=== PATIENT | female | born 1955 | race Caucasian/White ===

== ENCOUNTER 2017-05-06 10:35 | Day surgery (SDC) | payer MEDICAID ==
[2017-05-06 11:24] LABS: HEMATOCRIT 35.1 % (36.0-47.0); HEMOGLOBIN 11.6 g/dL (12.0-15.5); HGB HCT DIFFERENCE -0.3; MEAN CORPUSCULAR HEMOGLOBIN 28.3 pg (27.0-33.4); MEAN CORPUSCULAR HGB CONC 33.1 g/dL (32.0-36.0); MEAN CORPUSCULAR VOLUME 86 fl (80-97); RED BLOOD COUNT 4.11 10^6/uL (3.72-5.28); RED CELL DISTRIBUTION WIDTH 13.1 % (11.5-14.0); WHITE BLOOD COUNT 5.6 10^3/uL (4.0-10.5)
[2017-05-06 11:46] LABS: BLOOD UREA NITROGEN 14 mg/dL (7-20)
[2017-05-06] MEDS ORDERED: FENTANYL CITRATE INJ/PF 100 MCG/2 ML AMPUL ONE (14:13)
[2017-05-06] MEDS ORDERED: MIDAZOLAM 2 MG/2 ML INJ ONE (14:13)
--- NOTE | 2017-05-06 15:09 | RADIOLOGY REPORT (SQ) ---
EXAM DESCRIPTION: CT NEEDLE PLACEMENT; CT BIOPSY ABD/RETROPERIT MASS COMPLETED DATE/TIME: 05/06/2017 2:55 pm REASON FOR STUDY: RETROPERITONEAL BIOPSY; ABN FINDINGS ON IMAGING OF DIGESTIVE TRACT R93.3 ABNORMAL FINDINGS ON DX IMAGING OF PRT DIGESTIVE TRACT COMPARISON: None. FLUORO TIME: 1 minutes 8 second LIMITATIONS: None. PROCEDURE: After obtaining informed consent, the patient was brought to the CT suite and was placed supine on the CT gurney. The patient was prepped and draped in the usual sterile fashion . Axial mario ges were obtained for targeting of thelesser sac lesion. An appropriate access site was selected. IV sedation was administered and physician direction by the registered nurse using 1 milligrams of Verse d and 75 micrograms of fentanyl. Physiologic monitoring was provided before, during, and after sedati on. The total sedation time was 30 minutes. Documentation face to face time, the performing interventional radiologist, spent monitoring the jase ent: 30minutes. The skin, soft tissues and liver capsule were anesthetized with 1% lidocaine. Using CT fluoroscopic and dedicated CT imaging, a 19 gauge Temno coaxial outer guiding trocar was advanced through the skin , liver, and into the lesion. Trocar position was confirmed with CT images. Inner stylet was remove d patient was noted to have fluid. Approximately 20 cc of serosanguineous fluid was aspirated and se nt to the lab for analysis. Multiple core biopsy samples were then obtained of the lesion using a 20 gauge Temno coaxial core biopsy needle. The biopsy samples were placed in formalin and sent to the lab for analysis. The outer trocar was then pulled back and Gelfoam pledgets were inserted across th e liver parenchyma. Postprocedural CT images demonstrate no significant complications. A sterile dr essing was placed over the wound. The patient left the CT suite in stable condition. IMPRESSION: CT-guided at the lesser sac lesion biopsy. Pathology pending. COMMENT: Patient medication list reviewed:Yes- Quality ID# [id number]:Eligible professional attests to docu menting in the medical record they obtained, updated, or reviewed the patient's current medications. Quality ID #76: The patient was prepped and draped using maximum sterile barrier technique including cap, mask, sterile gown, sterile gloves, a large sterile sheet, hand hygiene, and 2% Chlorhexidine fo r cutaneous antisepsis. When ultrasound is used, sterile ultrasound techniques are followed requiring sterile gel and sterile probes. Quality ID 145: Final reports for procedures using fluoroscopy that document radiation exposure moraima richie, or exposure time and number of fluorographic images (if radiation exposure indices are not avail able) TECHNICAL DOCUMENTATION: JOB ID: [id number] [employer]- All Rights Reserved
[2017-05-06 17:05] VITALS: BP 151/87
== END 2017-05-06 17:05 | disposition home or self-care (01) ==
LOC: RAD 10:35
PROVIDERS: ATTEND Internal Medicine Gastroenterology
PROC: 0WBH3ZX Excision of Retroperitoneum, Percutaneous Approach, Diagnostic (ICD-10-PCS; principal; 2017-05-06)
DX: R93.3 Abnormal findings on diagnostic imaging of other parts of digestive tract (principal); R13.12 Dysphagia, oropharyngeal phase; C15.9 Malignant neoplasm of esophagus, unspecified; K58.0 Irritable bowel syndrome with diarrhea; R10.13 Epigastric pain; E78.00 Pure hypercholesterolemia, unspecified; E11.9 Type 2 diabetes mellitus without complications; I10 Essential (primary) hypertension; K76.0 Fatty (change of) liver, not elsewhere classified; Z88.2 Allergy status to sulfonamides; Z79.899 Other long term (current) drug therapy; Z79.82 Long term (current) use of aspirin
CPT/HCPCS: 36415; 87205; 87070; 84520; 82565; 85027; 85610; 85730; 87075; 88305 ×2; 77012; 49180; J2250; J3010

== ENCOUNTER → 2017-08-16 | Outpatient (CLI) | payer MEDICAID ==
--- NOTE | 2017-08-17 18:00 | RADIOLOGY REPORT (SQ) ---
EXAM DESCRIPTION: PET CT SKULL/THIGH COMPLETED DATE/TIME: 08/16/2017 10:37 pm REASON FOR STUDY: MALIGNANT NEOPLASM OF LOWER THIRD OF ESOPHAGUS C15.5 MALIGNANT NEOPLASM OF LOWER THIRD OF ESOPHAGUS COMPARISON: PET-CT 07/23/2014 CT abdomen pelvis 01/25/2015 CT-guided biopsy images 05/06/2017 RADIONUCLIDE AND DOSE: 9.6 mCi F18 FDG The route of agent administration: Intravenous FASTING BLOOD SUGAR: 134 mg/dl CONTRAST TYPE AND DOSE: No CT contrast given. TECHNIQUE: Blood glucose level was verified. Above dose of FDG was injected intravenously. 2-D seg mented attenuation correction images were obtained from the base of the skull to the midthighs. Nonc ontrast CT images were obtained for attenuation correction and fusion with emission images. CT image s were performed without oral or intravenous contrast and are not sensitive for parenchymal lesions. A series of overlapping emission PET images were obtained. Images reviewed and manipulated at [facility] work station by the radiologist. Images stored on PACS. LIMITATIONS: None. FINDINGS: HEAD AND NECK: No areas of abnormal metabolic activity in the soft tissues of the head and neck. CHEST: Multiple subcentimeter lung nodules are present worrisome for metastatic lesions ABDOMEN AND PELVIS: There are multiple cystic metastatic lesions throughout the liver. Several of th kinjal have a peripheral rim of increased activity. Index lesions are as follows: 7.8 x 7 cm left lobe liver segment 2, SUV of 8.2 6 x 4.4 cm left lobe liver segment 4B, SUV of 7.2 A single enlarged left para-aortic lymph node is present just superior to the left renal vein, 1.6 x 1.4 cm in size with SUV 3.6. PROXIMAL LOWER EXTREMITIES: No areas of abnormal metabolic activity in the soft tissues of the lower extremities. BONES: No abnormal metabolic activity in the visualized skeleton. ADDITIONAL CT FINDINGS: Degenerative changes cervical spine. Non metabolic 11 mm left upper inner qu adrant breast nodule axial image 90 of doubtful significance. Post hysterectomy. Anastomotic bowel geena in the right lower quadrant OTHER: Liver background SUV 2.4. Blood pool SUV 1.8. IMPRESSION: Liver metastatic lesions Hypermetabolic left para-aortic lymph node Multiple tiny subcentimeter lung nodules worrisome for metastatic disease TECHNICAL DOCUMENTATION: JOB ID: [id number]- All Rights Reserved
== END ==
LOC: RAD 20:48
PROVIDERS: ATTEND Internal Medicine
DX: C15.5 Malignant neoplasm of lower third of esophagus (principal)
CPT/HCPCS: 78815; A9552

== ENCOUNTER 2017-08-24 09:22 | Day surgery (SDC) | payer MEDICAID ==
[2017-08-24 09:07] LABS: HEMATOCRIT 34.5 % (36.0-47.0); HEMOGLOBIN 11.7 g/dL (12.0-15.5); HGB HCT DIFFERENCE 0.6; MEAN CORPUSCULAR HEMOGLOBIN 29.1 pg (27.0-33.4); MEAN CORPUSCULAR HGB CONC 33.8 g/dL (32.0-36.0); MEAN CORPUSCULAR VOLUME 86 fl (80-97); RED BLOOD COUNT 4.01 10^6/uL (3.72-5.28); RED CELL DISTRIBUTION WIDTH 16.2 % (11.5-14.0); WHITE BLOOD COUNT 15.2 10^3/uL (4.0-10.5)
[~2017-08-24 09:22] MED LIST: CEFAZOLIN 1 GM/D5W RTU 1 GM/50 ML RTUPB IV PRN; DEXTROSE 5%-1/2 NORMAL SALINE 1,000 ML IV PRN
[2017-08-24 09:35] LABS: ANION GAP 8 (5-19); BLOOD UREA NITROGEN 14 mg/dL (7-20); CALCIUM 9.7 mg/dL (8.4-10.2); CARBON DIOXIDE 31 mmol/L (22-30); CHLORIDE 87 mmol/L (98-107); CREATININE RESULT 0.74 mg/dL (0.52-1.25); GLUCOSE 151 mg/dL (75-110); POTASSIUM 4.5 mmol/L (3.6-5.0); SODIUM 126.4 mmol/L (137-145)
--- NOTE | 2017-08-24 10:46 | RADIOLOGY REPORT (SQ) ---
EXAM DESCRIPTION: CHEST PA/LATERAL COMPLETED DATE/TIME: 08/24/2017 9:09 am REASON FOR STUDY: ENCOUNTER FOR OTHER PREPROCEDURAL EXAMINATION COMPARISON: 01/25/2015 EXAM PARAMETERS: NUMBER OF VIEWS: two views TECHNIQUE: Digital Frontal and Lateral radiographic views of the chest acquired. RADIATION DOSE: NA LIMITATIONS: none FINDINGS: LUNGS AND PLEURA: Linear scarring or atelectasis in the right lower lobe. MEDIASTINUM AND HILAR STRUCTURES: No masses or contour abnormalities. HEART AND VASCULAR STRUCTURES: Heart normal size. No evidence for failure. BONES: No acute findings. HARDWARE: None in the chest. OTHER: No other significant finding. IMPRESSION: Atelectasis. TECHNICAL DOCUMENTATION: JOB ID: [id number] [employer]- All Rights Reserved
[2017-08-24] MEDS ORDERED: MIDAZOLAM 2 MG/2 ML INJ ONE (11:17)
[2017-08-24] MEDS ORDERED: FENTANYL CITRATE INJ/PF 100 MCG/2 ML AMPUL ONE (11:17)
[2017-08-24] MEDS ORDERED: BACITRACIN INJ 50,000 UNIT VIAL ONE (11:18)
[2017-08-24] MEDS ORDERED: LIDOCAINE 0.5% INJ-PF (5 MG/ML) 50 ML SDV ONE (11:18)
--- NOTE | 2017-08-24 12:37 | PDOC DISCHARGE SUMMARY ---
Discharge Summary (SDC) - Discharge Final Diagnosis: #1 recurrent esophageal cancer. 2. Diabetes mellitus type 2. 3. Hypertension Date of Surgery: 08/24/17 Discharge Date: 08/24/17 Condition: Poor Treatment or Instructions: Discharge home [after recovery per ASU criteria]. Diet , ADA meds per med rec,as tolerated, when fully awake advance as tolerated. Activities within moderation encouraged. Follow up in my office by appointment in about [1 week]. Call for appointment. Leave wounds [covered], [keep clean and dry, until office visit in 1 week]. Meds per med rec. May shower [in 48 hrs], [try to keep operated area as dry as possible]. Referrals: LOCALMD,NO [Primary Care Provider] - Discharge Diet: As Tolerated, Other (Comments) - Try to keep well hydrated Respiratory Treatments at Home: Deep Breathing/Coughing Discharge Activity: Activity As Tolerated Report the Following to Your Physician Immediately: Shortness of Breath, Unusual Bleeding
--- NOTE | 2017-08-24 12:41 | Operative Report ---
Operative Report DATE OF SURGERY: 08/24/17 PREOPERATIVE DIAGNOSIS: #1 recurrent esophageal cancer. 2. Diabetes mellitus type 2. 3. Hypertension POSTOPERATIVE DIAGNOSIS: #1 recurrent esophageal cancer. Post Port-A-Cath insertion. 2. Diabetes mellitus type 2. 3. Hypertension OPERATION: 1. Ultrasound evaluation and real-time access in the right internal jugular vein. 2. Insertion of single-lumen Port-A-Cath via real-time access in the right internal jugular vein. 3. Angiogram and interpretation. SURGEON: EARL HILLMAN UNIT CONTROLLER: None ANESTHESIA: Moderate Sedation TISSUE REMOVED OR ALTERED: Not applicable. COMPLICATIONS: None ESTIMATED BLOOD LOSS: 5 mL. INTRAOPERATIVE FINDINGS: Of a satisfactory right internal jugular vein, somewhat soft suggestive of reduced hydration. About 1.2 cm in diameter. Good position of the catheter with the tip just down in the right atrium. There was a tendency to go over to the innominate which is corrected by gentle manipulation. Contrast flow through the superior vena cava, right atrium noted. A spot film of the right apex looked normal with good position of the catheter and the normal lung appearance. PROCEDURE: After obtaining informed consent, the patient was taken to the [operating room] and positioned supine. The [right] neck and chest were prepared with chlorhexidine and draped out with sterile linen. After the " universal timeout ", in which it was verified that the patient continued to receive antibiotic, the procedure commenced. A steriley sheathed ultrasound probe was used to evaluate the [right] internal jugular vein. Local anesthesia was infiltrated adjacent to the probe. Access into the [right] internal jugular vein was obtained using a micropuncture needle, followed by micropuncture wire and then a micropuncture catheter. This was followed by introduction of a 0.035 guidewire the tip of which was placed down into the inferior vena cava . The port sites was marked , locally anesthetized and incision made. Dissection now proceeded to the deep subcutaneous subcutaneous tissues so that a pocket for the port was made. Meticulous hemostasis was secured and the catheter was tunneled between the 2 incisions. Proximally, the catheter was now positioned using a peel-away sheath. Distally the catheter was tailored to an appropriate length and then mated to the port using the contained fixating device. The port was now placed in the pocket and the catheter optimally positioned. The port was accessed with a Croft needle and an angiogram done under digital subtraction. The findings as dictated. With adequate and satisfactory positioning, both lumens of the chamber were irrigated with heparinized solution. The wounds were now closed using interrupted 3-0 PDS to the subcutaneous tissues and a continuous subcuticular suture of 4-0 Monocryl to the skin. These are reinforced with Steri-Strips over benzoin and then dressings applied. Time: 1 minute. Dose: 3.23 m Gy Contrast: 5 mls. Isovue 300. Copies of the dictated operative report for Dr. Earl Benton MD.
[2017-08-24 13:25] VITALS: BP 125/93
--- NOTE | 2017-08-24 14:34 | EKG REPORT ---
SEVERITY:- OTHERWISE NORMAL ECG - SINUS TACHYCARDIA : Confirmed by: Jennyfer Walsh MD 24-Aug-2017 14:33:45
--- NOTE | 2017-08-24 15:41 | RADIOLOGY REPORT (SQ) ---
EXAM DESCRIPTION: PORTACATH INSERTION COMPLETED DATE/TIME: 08/24/2017 3:01 pm REASON FOR STUDY: C15.5 C15.5 MALIGNANT NEOPLASM OF LOWER THIRD OF ESOPHAGUS Z01.818 ENCOUNTER FOR OTHER PREPROCEDURAL EXAMINATION COMPARISON: None. FLUOROSCOPY TIME: 1.0 minutes 6 images saved to PACS. TECHNIQUE: Intra-operative images acquired during surgical procedure to evaluate progress. NUMBER OF IMAGES: 6 dx LIMITATIONS: None. FINDINGS: Right-sided port tip overlies SVC. IMPRESSION: IMAGE(S) OBTAINED DURING PROCEDURE. COMMENT: Quality ID 145: Final reports for procedures using fluoroscopy that document radiation exp osure indices, or exposure time and number of fluorographic images (if radiation exposure indices are not available) Please consult full operative report of the attending physician for description of the procedure. TECHNICAL DOCUMENTATION: JOB ID: [id number] [employer]- All Rights Reserved
== END 2017-08-24 13:18 | disposition home or self-care (01) ==
LOC: SC 09:22
PROVIDERS: ATTEND Surgery
PROC: 05HM33Z Insertion of Infusion Device into Right Internal Jugular Vein, Percutaneous Approach (ICD-10-PCS; principal; 2017-08-24)
DX: C15.5 Malignant neoplasm of lower third of esophagus (principal); E11.9 Type 2 diabetes mellitus without complications; I10 Essential (primary) hypertension; E78.00 Pure hypercholesterolemia, unspecified; M19.90 Unspecified osteoarthritis, unspecified site; Z79.899 Other long term (current) drug therapy; Z79.84 Long term (current) use of oral hypoglycemic drugs
CPT/HCPCS: 93005; 36415; 85027; 80048; 36561; 76937; 77001; 71020; 93010; C1788; C1752; Q9967; J2250; J3490 ×2; J0690; J3010; J1644

== ENCOUNTER 2017-08-31 11:25 | Inpatient (IN) | payer MEDICAID ==
--- NOTE | 2017-08-31 12:04 | ER Document Report ---
ED General - General Chief Complaint: General Weakness Stated Complaint: WEAKNESS Time Seen by Provider: 08/31/17 11:50 Information source: Patient, Relative Notes: This is a 61-year-old female with history of metastatic esophageal cancer. Has been having increasing weakness while at home. Daughter takes care of her. States that she is dropping things and more unresponsive than usual. Followed by oncology. Recent port was placed in the right subclavian proximally 1 week ago. Denies fevers, chills or sweats. Has lost appetite. She has not been eating or drinking well either. By report from family patient is a DNR. Patient is not on hospice at this time. Scheduled for chemotherapy soon. TRAVEL OUTSIDE OF THE [place] IN LAST 30 DAYS: No - Related Data Allergies/Adverse Reactions: Sulfa (Sulfonamide Antibiotics) Allergy (Intermediate, Verified 08/31/17 12:08) Past Medical History - General Information source: Patient, Relative - Social History Smoking Status: Smoker,Current Status Unk Family History: Reviewed & Not Pertinent Patient has suicidal ideation: No Patient has homicidal ideation: No - Past Medical History Cardiac Medical History: Reports: Hx Coronary Artery Disease, Hx Hypercholesterolemia, Hx Hypertension Denies: Hx Heart Attack Pulmonary Medical History: Denies: Hx Asthma, Hx Bronchitis, Hx COPD, Hx Pneumonia Neurological Medical History: Denies: Hx Cerebrovascular Accident, Hx Seizures Endocrine Medical History: Reports: Hx Diabetes Mellitus Type 2 Renal/ Medical History: Denies: Hx Peritoneal Dialysis GI Medical History: Reports: Hx Gastroesophageal Reflux Disease Musculoskeltal Medical History: Reports Hx Arthritis Psychiatric Medical History: Denies: Hx Depression Past Surgical History: Reports: Hx Gynecologic Surgery - Immunizations Hx Diphtheria, Pertussis, Tetanus Vaccination: Yes Review of Systems - Review of Systems Constitutional: No symptoms reported, Malaise, Weakness, Weight loss EENT: No symptoms reported Cardiovascular: No symptoms reported, Heart racing Respiratory: No symptoms reported, Short of breath Gastrointestinal: No symptoms reported, Abdominal pain Genitourinary: No symptoms reported, Other - Decreased urinary output Female Genitourinary: No symptoms reported Musculoskeletal: No symptoms reported, Other - Aches and pains in bilateral lower extremities Skin: No symptoms reported Hematologic/Lymphatic: No symptoms reported, See HPI Neurological/Psychological: No symptoms reported, Confusion, Weakness Physical Exam - Vital signs Vitals: Pulse Resp BP Pulse Ox 134 H 21 H 94/66 L 93 08/31/17 11:27 08/31/17 11:27 08/31/17 11:27 08/31/17 11:27 Interpretation: Normal, Tachycardic - General General appearance: Appears well, Alert, Lethargic - HEENT Head: Normocephalic, Atraumatic Eyes: Normal Conjunctiva: Icteric Pupils: PERRL Mucous membranes: Dry - Respiratory Respiratory status: No respiratory distress Chest status: Nontender Breath sounds: Normal Chest palpation: Normal - Cardiovascular Rhythm: Regular, Tachycardia Heart sounds: Normal auscultation Murmur: No - Abdominal Inspection: Normal Distension: No distension Bowel sounds: Normal Tenderness: Nontender Organomegaly: No organomegaly - Back Back: Normal, Nontender - Extremities General upper extremity: Normal inspection, Nontender, Normal color, Normal ROM , Normal temperature General lower extremity: Normal inspection, Nontender, Normal color, Normal ROM , Normal temperature, Normal weight bearing. No: Lucia's sign - Neurological Neuro grossly intact: Yes Cognition: Normal Orientation: AAOx4 Jovon Coma Scale Eye Opening: Spontaneous Jovon Coma Scale Verbal: Oriented Jovon Coma Scale Motor: Obeys Commands [place] Coma Scale Total: 15 Speech: Normal Motor strength normal: LUE, RUE, LLE, RLE Sensory: Normal - Psychological Associated symptoms: Normal affect, Normal mood - Skin Skin Temperature: Warm Skin Moisture: Dry Skin Color: Normal Course - Re-evaluation Re-evalutation: 08/31/17 12:26 This is a 61-year-old female patient with malignancy. Is tachycardic. Could be dehydrated versus sepsis. We will do a septic protocol at this time with blood cultures and lactic acid. We will start some IV fluids. We will also get basic blood work, chest x-ray as well as head CT. Will consult with oncologist regarding her continued care. Family members are at bedside are aware of plan as well. 08/31/17 14:59 Consulted with oncologist, Dr. Zuleta. Recommends getting culture off of the port, culture urine and starting on broad-spectrum antibiotics as patient has an elevated white count and not feeling well which could represent an infection. Patient also has hyponatremia. Also has mild hyperkalemia. Also has dehydration and tachycardia. Will consult with hospitalist at this time for admit. 08/31/17 15:04 Consulted hospitalist. Will admit at this time - Vital Signs Vital signs: Temp Pulse Resp BP Pulse Ox 98.1 F 134 H 15 103/74 90 L 08/31/17 12:08 08/31/17 11:27 08/31/17 14:01 08/31/17 14:01 08/31/17 14:01 - Laboratory Result Diagrams: 08/31/17 11:55 08/31/17 11:55 Laboratory results interpreted by me: 08/31/17 08/31/17 08/31/17 11:55 11:55 11:55 WBC 19.2 H RDW 17.4 H Seg Neuts % (Manual) 96 H Lymphocytes % (Manual) 2 L Monocytes % (Manual) 2 L Abs Neuts (Manual) 18.4 H Abs Lymphs (Manual) 0.4 L PT 46.7 H VBG pH Sodium 126.8 L Potassium 5.1 H Chloride 86 L BUN 40 H Est GFR (Non-Af Amer) 50 L Glucose 200 H POC Glucose Lactic Acid Calcium 10.5 H Total Bilirubin 7.1 H Direct Bilirubin 5.5 H AST 807 H ALT 376 H Alkaline Phosphatase 479 H Albumin 2.8 L 08/31/17 08/31/17 08/31/17 11:55 11:55 12:28 WBC RDW Seg Neuts % (Manual) Lymphocytes % (Manual) Monocytes % (Manual) Abs Neuts (Manual) Abs Lymphs (Manual) PT VBG pH 7.48 H Sodium Potassium Chloride BUN Est GFR (Non-Af Amer) Glucose POC Glucose 177 H Lactic Acid 5.0 H Calcium Total Bilirubin Direct Bilirubin AST ALT Alkaline Phosphatase Albumin - EKG Interpretation by Me EKG shows normal: [place], Intervals, QRS Complexes, ST-T Waves Rate: Tachycardia Critical Care Note - Critical Care Note Total time excluding time spent on procedures (mins): 60 Comments: Metabolic disorders, tachycardia, dehydration Discharge - Discharge Clinical Impression: 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
[2017-08-31] MEDS ORDERED: NORMAL SALINE 1000 ML 1,000 ML IV ONE ×2 (12:06→14:11)
[2017-08-31 12:14] LABS: HEMATOCRIT 43.2 % (36.0-47.0); HEMOGLOBIN 13.9 g/dL (12.0-15.5); HGB HCT DIFFERENCE -1.5; MEAN CORPUSCULAR HEMOGLOBIN 28.4 pg (27.0-33.4); MEAN CORPUSCULAR HGB CONC 32.3 g/dL (32.0-36.0); MEAN CORPUSCULAR VOLUME 88 fl (80-97); RED BLOOD COUNT 4.91 10^6/uL (3.72-5.28); RED CELL DISTRIBUTION WIDTH 17.4 % (11.5-14.0); WHITE BLOOD COUNT 19.2 10^3/uL (4.0-10.5)
[2017-08-31 12:15] LABS: VENOUS BLOOD BASE EXCESS 4.5 mmol/L; VENOUS BLOOD HCO3 28.3 mmol/L (20-32); VENOUS BLOOD PCO2 38.9 mmHg (35-63); VENOUS BLOOD PH 7.48 (7.30-7.42)
[2017-08-31 12:20] LABS: PROTHROMBIN TIME 46.7 SEC (11.4-15.4)
[2017-08-31 12:30] LABS: ALANINE AMINOTRANSFERASE 376 U/L (9-52); ALBUMIN 2.8 g/dL (3.5-5.0); ALKALINE PHOSPHATASE 479 U/L (38-126); ANION GAP 15 (5-19); BILIRUBIN,DIRECT 5.5 mg/dL (0.0-0.4); BILIRUBIN,TOTAL 7.1 mg/dL (0.2-1.3); BLOOD UREA NITROGEN 40 mg/dL (7-20); CALCIUM 10.5 mg/dL (8.4-10.2); CARBON DIOXIDE 26 mmol/L (22-30); CHLORIDE 86 mmol/L (98-107); CREATININE RESULT 1.11 mg/dL (0.52-1.25); GLUCOSE 200 mg/dL (75-110); LIPASE 83.2 U/L (23-300); POTASSIUM 5.1 mmol/L (3.6-5.0); SODIUM 126.8 mmol/L (137-145); TOTAL PROTEIN 6.5 g/dL (6.3-8.2)
[2017-08-31 12:38] LABS: ASPARTATE AMINO TRANSFERASE 807 U/L (14-36)
[2017-08-31 12:42] LABS: BASOPHILS % (MANUAL) 0 % (0-2); EOSINOPHILS % (MANUAL) 0 % (0-6); LYMPHOCYTES % (MANUAL) 2 % (13-45); TOTAL CELLS COUNTED 100
[2017-08-31 12:44] LABS: ANISOCYTOSIS 1+; TOXIC GRANULATION 2+
--- NOTE | 2017-08-31 12:54 | RADIOLOGY REPORT (SQ) ---
EXAM DESCRIPTION: CT HEAD WITHOUT COMPLETED DATE/TIME: 08/31/2017 12:22 pm REASON FOR STUDY: Altered mental status, malignancy with mets COMPARISON: 05/11/2016 TECHNIQUE: Axial images acquired through the brain without intravenous contrast. Images reviewed wi th bone, brain and subdural windows. Images stored on PACS. All CT scanners at this facility use dose modulation, iterative reconstruction, and/or weight based d osing when appropriate to reduce radiation dose to as low as reasonably achievable (ALARA). [facility]: Dose Right [facility]: CareDose [facility]: Dose Right [facility]: Teradose 4D [facility]: Garena RADIATION DOSE: Up-to-date CT equipment and radiation dose reduction techniques were employed. CTDIv ol: 64.6 mGy. DLP: 1163 mGy-cm. mGy. LIMITATIONS: None. FINDINGS: VENTRICLES: Normal size and contour. CEREBRUM: No masses. No hemorrhage. No midline shift. No evidence for acute infarction. Normal gra y/white matter differentiation. No areas of low density in the white matter. CEREBELLUM: No masses. No hemorrhage. No alteration of density. No evidence for acute infarction. EXTRAAXIAL SPACES: No fluid collections. No masses. ORBITS AND GLOBE: No intra- or extraconal masses. Normal contour of globe without masses. CALVARIUM: No fracture. PARANASAL SINUSES: No fluid or mucosal thickening. SOFT TISSUES: No mass or hematoma. OTHER: No other significant finding. IMPRESSION: NORMAL BRAIN CT WITHOUT CONTRAST. NO EVIDENCE OF METASTASES. NO EVIDENCE OF STROKE. . COMMENT: Quality ID # [id number]: Final reports with documentation of one or more dose reduction techniques (e.g., Automated exposure control, adjustment of the mA and/or kV according to patient size, use of iterative reconstruction technique) TECHNICAL DOCUMENTATION: JOB ID: [id number]- All Rights Reserved
--- NOTE | 2017-08-31 13:04 | RADIOLOGY REPORT (SQ) ---
EXAM DESCRIPTION: CHEST SINGLE VIEW COMPLETED DATE/TIME: 08/31/2017 12:27 pm REASON FOR STUDY: sob COMPARISON: None. EXAM PARAMETERS: NUMBER OF VIEWS: One view. TECHNIQUE: Single frontal radiographic view of the chest acquired. RADIATION DOSE: NA LIMITATIONS: None. FINDINGS: LUNGS AND PLEURA: There is subsegmental atelectasis the right base. MEDIASTINUM AND HILAR STRUCTURES: No masses. Contour normal. HEART AND VASCULAR STRUCTURES: Heart normal in size. Normal vasculature. BONES: No acute findings. HARDWARE: An injection port is present on the right. The tip of the catheter is in the superior cava . OTHER: No other significant finding. IMPRESSION: Subsegmental atelectasis with no acute cardiopulmonary disease. TECHNICAL DOCUMENTATION: JOB ID: [id number]
--- NOTE | 2017-08-31 13:23 | EKG REPORT ---
SEVERITY:- OTHERWISE NORMAL ECG - SINUS TACHYCARDIA : Confirmed by: Jace Clark MD 31-Aug-2017 13:23:14
[2017-08-31] MEDS ORDERED: PIPERACILLIN/TAZOBACTAM 3.375 GM VIAL IV ONE (14:49)
[2017-08-31] MEDS ORDERED: ONDANSETRON HCL INJ/PF 4 MG/2 ML SDV IV PRN (15:35)
[2017-08-31] MEDS ORDERED: PROMETHAZINE HCL 25 MG SUPP.RECT PR PRN (15:35)
[2017-08-31] MEDS ORDERED: ACETAMINOPHEN 325 MG TABLET PO PRN (15:35)
[2017-08-31] MEDS ORDERED: VANCOMYCIN HCL 0 MG in DEXTROSE 5%-WATER 250 ML IV NR (15:45)
[2017-08-31] MEDS ORDERED: OXYCODONE HCL SR 10 MG TABLET PO SCH (15:45)
[2017-08-31] MEDS ORDERED: NORFLURANE/PENTAFLUOROPROPANE 30 ML SPRAY TP ONE (15:48)
[2017-08-31] MEDS ORDERED: PHYTONADIONE INJ 10 MG/1 ML AMPULE SUBCUT ONE (16:07)
--- NOTE | 2017-08-31 16:07 | PDOC H&P ---
History of Present Illness Admission Date/PCP: 08/31/17 15:15 History of Present Illness: JULIA MELÉNDEZ is a 61 year old female with metastatic esophageal cancer presents to the emergency department with several weeks of poor appetite, and weakness. Patient had a new port placed on Thursday. Daughter reports to me at that time that this patient was dehydrated. Patient last had a bowel movement on Thursday. Patient is apparently scheduled to have chemotherapy tomorrow. Patient is found to be overtly septic with tachycardia, altered mentation, leukocytosis, tachypnea, And lactic acidosis. She is referred to hospital service for admission. Past Medical History Cardiac Medical History: Reports: Coronary Artery Disease, Hyperlipidema, Hypertension Denies: Myocardial Infarction Pulmonary Medical History: Denies: Asthma, Bronchitis, Chronic Obstructive Pulmonary Disease (COPD), Pneumonia Neurological Medical History: Denies: Seizures Endocrine Medical History: Reports: Diabetes Mellitus Type 2 GI Medical History: Reports: Gastroesophageal Reflux Disease Musculoskeltal Medical History: Reports: Arthritis Psychiatric Medical History: Denies: Depression Hematology: Denies: Anemia Past Surgical History Past Surgical History: Reports: Appendectomy, Hysterectomy, Other - Port placement Social History Smoking Status: Never Smoker Frequency of Alcohol Use: None Hx Recreational Drug Use: No - Advance Directive Resuscitation Status: Do Not Resuscitate Surrogate healthcare decision maker:: DaughterTea Family History Family History: Malignancy Parental Family History Reviewed: Yes Children Family History Reviewed: Yes Sibling(s) Family History Reviewed.: Yes Medication/Allergy Home Medications: Ondansetron [Ondansetron Odt] 8 mg PO Q8H PRN 08/24/17 Oxycodone HCl 5 mg PO Q6H PRN 08/24/17 Oxycodone HCl [Oxycontin Sr 10 mg Tablet] 10 mg PO Q12H 08/24/17 Allergies/Adverse Reactions: Sulfa (Sulfonamide Antibiotics) Allergy (Intermediate, Verified 08/31/17 12:08) Review of Systems Constitutional: PRESENT: anorexia, fatigue, night sweats, weakness, weight loss. ABSENT: chills, fever(s), headache(s), weight gain Eyes: ABSENT: visual disturbances Ears: ABSENT: hearing changes Cardiovascular: ABSENT: chest pain, dyspnea on exertion, edema, orthropnea, palpitations Respiratory: ABSENT: cough, dyspnea, hemoptysis, sputum Gastrointestinal: PRESENT: dysphagia, heartburn. ABSENT: abdominal pain, constipation, diarrhea, hematemesis, hematochezia, melena, nausea, vomiting Genitourinary: ABSENT: dysuria, hematuria Musculoskeletal: ABSENT: joint swelling Integumentary: ABSENT: rash, wounds Neurological: ABSENT: abnormal gait, abnormal speech, confusion, dizziness, focal weakness, syncope Psychiatric: ABSENT: anxiety, depression, homidical ideation, suicidal ideation Endocrine: ABSENT: cold intolerance, heat intolerance, polydipsia, polyuria Hematologic/Lymphatic: ABSENT: easy bleeding, easy bruising Physical Exam Vital Signs: Temp Pulse Resp BP Pulse Ox 98.1 F 134 H 15 103/74 90 L 08/31/17 12:08 08/31/17 11:27 08/31/17 14:01 08/31/17 14:01 08/31/17 14:01 General appearance: PRESENT: mild distress, well-developed, other - Chronically ill-appearing. ABSENT: well-nourished Head exam: PRESENT: atraumatic, normocephalic, other - Pro-muscle wasting Eye exam: PRESENT: conjunctiva pink, EOMI, PERRLA, scleral icterus Ear exam: PRESENT: normal external ear exam Mouth exam: PRESENT: dry mucosa, tongue midline Neck exam: ABSENT: JVD, lymphadenopathy, thyromegaly, tracheal deviation Respiratory exam: PRESENT: clear to auscultation héctor, symmetrical, unlabored. ABSENT: accessory muscle use, crackles, rales, retraction, rhonchi, tachypnea, wheezes Cardiovascular exam: PRESENT: RRR, +S1, +S2, systolic murmur - 2/6 pansystolic apex, tachycardia. ABSENT: gallop, rubs Pulses: PRESENT: normal dorsalis pedis pul Vascular exam: PRESENT: normal capillary refill GI/Abdominal exam: PRESENT: normal bowel sounds, soft. ABSENT: distended, guarding, mass, organolmegaly, rebound, tenderness Rectal exam: PRESENT: deferred Extremities exam: PRESENT: full ROM. ABSENT: calf tenderness, clubbing, pedal edema Neurological exam: PRESENT: alert, awake, oriented to person, oriented to place , oriented to time, oriented to situation, CN II-XII grossly intact. ABSENT: motor sensory deficit Psychiatric exam: PRESENT: flat affect. ABSENT: homicidal ideation, suicidal ideation Skin exam: PRESENT: dry, intact, warm. ABSENT: cyanosis, rash Results Laboratory Results: 08/31/17 08/31/17 08/31/17 11:55 11:55 11:55 WBC 19.2 H INR 4.77 VBG pH Sodium 126.8 L Potassium 5.1 H Chloride 86 L BUN 40 H Creatinine 1.11 Est GFR (Non-Af Amer) 50 L Glucose 200 H Lactic Acid Calcium 10.5 H Total Bilirubin 7.1 H Direct Bilirubin 5.5 H AST 807 H ALT 376 H Alkaline Phosphatase 479 H Albumin 2.8 L 08/31/17 08/31/17 11:55 11:55 WBC INR VBG pH 7.48 H Sodium Potassium Chloride BUN Creatinine Est GFR (Non-Af Amer) Glucose Lactic Acid 5.0 H Calcium Total Bilirubin Direct Bilirubin AST ALT Alkaline Phosphatase Albumin Impressions: Chest X-Ray 08/31/17 12:05 IMPRESSION: Subsegmental atelectasis with no acute cardiopulmonary disease. Head CT 08/31/17 12:05 IMPRESSION: NORMAL BRAIN CT WITHOUT CONTRAST. NO EVIDENCE OF METASTASES. NO EVIDENCE OF STROKE. . Assessment & Plan - Diagnosis (1) Severe sepsis Is this a current diagnosis for this admission?: Yes Plan: Give patient total of 5 L of IV fluid. Attempt to maintain map greater than 65. Repeat lactate. Pending cultures. Initiate patient on Zosyn and vancomycin (2) Transaminitis Is this a current diagnosis for this admission?: Yes Plan: Secondary to liver metastasis (3) Coagulopathy Is this a current diagnosis for this admission?: Yes Plan: Give vitamin K subcu (4) Dehydration Is this a current diagnosis for this admission?: Yes Plan: Begin IV fluids (5) Hyponatremia Is this a current diagnosis for this admission?: Yes Plan: Secondary to intravascular volume depletion (6) Esophageal cancer Qualifiers: Malignant neoplasm of esophagus location: lower third Qualified Code(s): C15.5 - Malignant neoplasm of lower third of esophagus Is this a current diagnosis for this admission?: Yes Plan: With distant metastasis to the liver Patient is apparently slated to undergo chemotherapy. We will consult her oncologist. - Time Time Spent: 50 to 70 Minutes Medications reviewed and adjusted accordingly: Yes
[2017-08-31] MEDS: NORMAL SALINE 1000 ML 1,000 ML IV PRN (16:44)
[2017-08-31 17:00] LABS: AMORPHOUS SEDIMENT,URINE TRACE /HPF; APPEARANCE,URINE CLOUDY; BILIRUBIN,URINE SMALL (NEGATIVE); GLUCOSE, URINE NEGATIVE (NEGATIVE); KETONES,URINE NEGATIVE (NEGATIVE); LEUKOCYTE ESTERASE,URINE NEGATIVE (NEGATIVE); NITRITE,URINE NEGATIVE (NEGATIVE); PROTEIN,URINE 30 mg/dL (NEGATIVE); URINE SPECIFIC GRAVITY 1.027
[2017-08-31] MEDS: OXYCODONE HCL IR 5 MG TABLET PO PRN ×2 (17:11→21:13)
[2017-08-31] MEDS: LANSOPRAZOLE 30 MG TAB.RAP.DR PO SCH (18:53)
[2017-08-31] MEDS: PIPERACILLIN SODIUM/TAZOBACTAM 3.375 GM in NORMAL SALINE 100 ML IV SCH ×2 (19:24→23:19)
[2017-08-31] MEDS: DOCUSATE SODIUM 100 MG CAPSULE PO SCH (19:26)
[2017-08-31] MEDS: VANCOMYCIN HCL 750 MG in DEXTROSE 5%-WATER 250 ML IV SCH (20:17)
[2017-08-31] MEDS: OXYCODONE HCL SR 10 MG TABLET PO SCH (22:01)
[2017-09-01] MEDS: NORMAL SALINE 1000 ML 1,000 ML IV PRN ×2 (02:02→11:27)
[2017-09-01] MEDS: OXYCODONE HCL IR 5 MG TABLET PO PRN ×3 (03:52→16:02)
[2017-09-01] MEDS: LANSOPRAZOLE 30 MG TAB.RAP.DR PO SCH ×2 (05:07→18:13)
[2017-09-01] MEDS: PIPERACILLIN SODIUM/TAZOBACTAM 3.375 GM in NORMAL SALINE 100 ML IV SCH ×3 (05:08→18:12)
[2017-09-01] MEDS: VANCOMYCIN HCL 750 MG in DEXTROSE 5%-WATER 250 ML IV SCH ×2 (06:10→20:31)
[2017-09-01] MEDS ORDERED: NORMAL SALINE 1000 ML 1,000 ML IV PRN (06:41)
[2017-09-01 08:12] LABS: HEMATOCRIT 36.9 % (36.0-47.0); HEMOGLOBIN 11.9 g/dL (12.0-15.5); HGB HCT DIFFERENCE -1.2; MEAN CORPUSCULAR HEMOGLOBIN 28.7 pg (27.0-33.4); MEAN CORPUSCULAR HGB CONC 32.3 g/dL (32.0-36.0); MEAN CORPUSCULAR VOLUME 89 fl (80-97); RED BLOOD COUNT 4.15 10^6/uL (3.72-5.28); RED CELL DISTRIBUTION WIDTH 17.6 % (11.5-14.0); WHITE BLOOD COUNT 18.7 10^3/uL (4.0-10.5)
--- NOTE | 2017-09-01 08:27 | PDOC CONSULTATION ---
Consultation Consult Date: 09/01/17 Attending physician:: LEONARDO TIRADO Consult reason:: Hypertension, sepsis, stage IV gastric cancer History of Present Illness Admission Date/PCP: 08/31/17 15:35 Patient complains of: Weakness, hypertension History of Present Illness: 61-year-old female well-known to our oncology clinic, who had history of a stage II mid esophageal cancer that was diagnosed and treated about 2 years ago , she was doing well until about 3 and 4 months ago, at that time she was having abdominal pain, she was found to have a questionable cyst on the liver, and she was ultimately referred to Dr. Gary Gutierrez, surgical oncology for further evaluation,. Biopsy was attempted but only necrotic material was obtained, ultimately repeat imaging done recently indicated multiple new liver lesions as well as esophageal mass, specifically GE junction, she had EGD and there was external compression of what look like lymphadenopathy at the GE junction. This was causing swallowing difficulty. Biopsy of that area indicated poorly differentiated carcinoma, it looks very similar to the original biopsy. This was felt thus to be a stage IV gastric/esophageal cancer. Past Medical History Cardiac Medical History: Reports: Coronary Artery Disease, Hyperlipidema, Hypertension Denies: Myocardial Infarction Pulmonary Medical History: Denies: Asthma, Bronchitis, Chronic Obstructive Pulmonary Disease (COPD), Pneumonia Neurological Medical History: Denies: Seizures Endocrine Medical History: Reports: Diabetes Mellitus Type 2 GI Medical History: Reports: Gastroesophageal Reflux Disease Musculoskeltal Medical History: Reports: Arthritis Psychiatric Medical History: Denies: Depression Hematology: Denies: Anemia Past Surgical History Past Surgical History: Reports: Appendectomy, Hysterectomy, Other - Port placement Social History Smoking Status: Never Smoker Frequency of Alcohol Use: None Hx Recreational Drug Use: No Drugs: None Hx Prescription Drug Abuse: No - Advance Directive Resuscitation Status: Do Not Resuscitate Family History Family History: Malignancy Parental Family History Reviewed: Yes Children Family History Reviewed: Yes Sibling(s) Family History Reviewed.: Yes Medication/Allergy Home Medications: Ondansetron [Ondansetron Odt] 8 mg PO Q8HP PRN 08/24/17 Oxycodone HCl 5 mg PO Q6HP PRN 08/24/17 Oxycodone HCl [Oxycontin Sr 10 mg Tablet] 10 mg PO Q12 08/24/17 Allergies/Adverse Reactions: Sulfa (Sulfonamide Antibiotics) Allergy (Intermediate, Verified 08/31/17 12:08) Review of Systems Constitutional: ABSENT: chills, fever(s), headache(s), weight gain, weight loss Eyes: ABSENT: visual disturbances Ears: ABSENT: hearing changes Cardiovascular: ABSENT: chest pain, dyspnea on exertion, edema, orthropnea, palpitations Respiratory: ABSENT: cough, hemoptysis Gastrointestinal: ABSENT: abdominal pain, constipation, diarrhea, hematemesis, hematochezia, nausea, vomiting Genitourinary: ABSENT: dysuria, hematuria Musculoskeletal: ABSENT: joint swelling Integumentary: ABSENT: rash, wounds Neurological: ABSENT: abnormal gait, abnormal speech, confusion, dizziness, focal weakness, syncope Psychiatric: ABSENT: anxiety, depression, homidical ideation, suicidal ideation Endocrine: ABSENT: cold intolerance, heat intolerance, polydipsia, polyuria Hematologic/Lymphatic: ABSENT: easy bleeding, easy bruising Physical Exam Vital Signs: Temp Pulse Resp BP Pulse Ox 98.0 F 107 H 12 101/70 94 09/01/17 03:54 09/01/17 03:54 09/01/17 03:54 09/01/17 03:54 09/01/17 03:54 Intake & Output 08/31/17 09/01/17 09/02/17 06:59 06:59 06:59 Intake Total 3080 Output Total 525 Balance 2555 Weight 76 kg General appearance: PRESENT: no acute distress, well-developed, well-nourished Head exam: PRESENT: atraumatic, normocephalic Eye exam: PRESENT: conjunctiva pink, EOMI, PERRLA. ABSENT: scleral icterus Ear exam: PRESENT: normal external ear exam Mouth exam: PRESENT: moist, tongue midline Neck exam: ABSENT: carotid bruit, JVD, lymphadenopathy, thyromegaly Respiratory exam: PRESENT: clear to auscultation héctor. ABSENT: rales, rhonchi, wheezes Cardiovascular exam: PRESENT: RRR. ABSENT: diastolic murmur, rubs, systolic murmur Pulses: PRESENT: normal dorsalis pedis pul Vascular exam: PRESENT: normal capillary refill GI/Abdominal exam: PRESENT: normal bowel sounds, soft. ABSENT: distended, guarding, mass, organolmegaly, rebound, tenderness Rectal exam: PRESENT: deferred Extremities exam: PRESENT: full ROM. ABSENT: calf tenderness, clubbing, pedal edema Neurological exam: PRESENT: alert, awake, oriented to person, oriented to place , oriented to time, oriented to situation, CN II-XII grossly intact. ABSENT: motor sensory deficit Psychiatric exam: PRESENT: appropriate affect, normal mood. ABSENT: homicidal ideation, suicidal ideation Skin exam: PRESENT: dry, intact, warm. ABSENT: cyanosis, rash Results Laboratory Results: 08/31/17 08/31/17 16:21 16:26 Lactic Acid 3.3 H Urine Color ZHENG Urine Appearance CLOUDY Urine pH 5.0 Ur Specific [place] 1.027 Urine Protein 30 H Urine Glucose (UA) NEGATIVE Urine Ketones NEGATIVE Urine Blood MODERATE H Urine Nitrite NEGATIVE Ur Leukocyte Esterase NEGATIVE Urine WBC (Auto) 5 Urine RBC (Auto) 5 Impressions: Chest X-Ray 08/31/17 12:05 IMPRESSION: Subsegmental atelectasis with no acute cardiopulmonary disease. Head CT 08/31/17 12:05 IMPRESSION: NORMAL BRAIN CT WITHOUT CONTRAST. NO EVIDENCE OF METASTASES. NO EVIDENCE OF STROKE. . Assessment & Plan - Diagnosis (1) Severe sepsis Is this a current diagnosis for this admission?: Yes Plan: Continue with broad-spectrum antibiotics, awaiting cultures, continue with aggressive hydration as well. 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 We have put this on the chart. If she does not improve in the next 48-72 hours, we will discuss comfort care measures at that point. (3) Transaminitis Is this a current diagnosis for this admission?: Yes Plan: She is having transaminitis as well as liver failure, continue with current management, hopefully this will turn around. - Time Time Spent: Greater than 70 Minutes Critical Time spent with patient: 35 or more minutes
[2017-09-01 08:33] LABS: ALANINE AMINOTRANSFERASE 376 U/L (9-52); ALBUMIN 2.2 g/dL (3.5-5.0); ALKALINE PHOSPHATASE 367 U/L (38-126); ANION GAP 9 (5-19); BILIRUBIN,DIRECT 5.6 mg/dL (0.0-0.4); BILIRUBIN,TOTAL 7.1 mg/dL (0.2-1.3); BLOOD UREA NITROGEN 38 mg/dL (7-20); CALCIUM 9.4 mg/dL (8.4-10.2); CARBON DIOXIDE 27 mmol/L (22-30); CHLORIDE 93 mmol/L (98-107); CREATININE RESULT 1.03 mg/dL (0.52-1.25); GLUCOSE 142 mg/dL (75-110); POTASSIUM 4.6 mmol/L (3.6-5.0); SODIUM 128.8 mmol/L (137-145); TOTAL PROTEIN 5.2 g/dL (6.3-8.2)
[2017-09-01 08:34] LABS: MAGNESIUM 2.1 mg/dL (1.6-2.3)
[2017-09-01 08:42] LABS: ASPARTATE AMINO TRANSFERASE 845 U/L (14-36); BASOPHILS % (MANUAL) 0 % (0-2); EOSINOPHILS % (MANUAL) 0 % (0-6); LYMPHOCYTES % (MANUAL) 9 % (13-45); TOTAL CELLS COUNTED 100
[2017-09-01 08:44] LABS: PROTHROMBIN TIME 22.4 SEC (11.4-15.4)
[2017-09-01 08:50] LABS: TOXIC GRANULATION SLIGHT; TOXIC VACUOLATION PRESENT
[2017-09-01 08:51] LABS: ANISOCYTOSIS 1+; POIKILOCYTOSIS SLIGHT; POLYCHROMASIA 1+
[2017-09-01 08:52] LABS: BURR CELLS SLIGHT
--- NOTE | 2017-09-01 09:54 | PDOC PROGRESS REPORT ---
Subjective Progress Note for:: 09/01/17 Subjective:: Patient is resting comfortably. Seen with family at bedside. Discussed with Dr. Fuchs. Physical Exam Vital Signs: Temp Pulse Resp BP Pulse Ox 98.0 F 107 H 12 101/70 94 09/01/17 03:54 09/01/17 03:54 09/01/17 03:54 09/01/17 03:54 09/01/17 03:54 Intake & Output 08/31/17 09/01/17 09/02/17 06:59 06:59 06:59 Intake Total 3080 Output Total 525 Balance 2555 Weight 76 kg Exam: General: resting comfortably, no acute respiratory distress HEENT: AT/NC, PERRL, EOMI, oropharynx is moist, pink Neck: No JVD, trachea midline Chest: Clear to auscultation bilaterally, no wheezes rhonchi or rales CV: Regular rate and rhythm, normal S1 and S2, no rub or gallop; 2/6 SM Abdomen: Soft, nontender to palpation, nondistended, active bowel sounds; no rebound, rigidity, or guarding Extremities: No cyanosis, clubbing or edema Results Laboratory Results: 08/31/17 08/31/17 16:21 16:26 Lactic Acid 3.3 H Urine Color ZHENG Urine Appearance CLOUDY Urine pH 5.0 Ur Specific [place] 1.027 Urine Protein 30 H Urine Glucose (UA) NEGATIVE Urine Ketones NEGATIVE Urine Blood MODERATE H Urine Nitrite NEGATIVE Ur Leukocyte Esterase NEGATIVE Urine WBC (Auto) 5 Urine RBC (Auto) 5 Impressions: Chest X-Ray 08/31/17 12:05 IMPRESSION: Subsegmental atelectasis with no acute cardiopulmonary disease. Head CT 08/31/17 12:05 IMPRESSION: NORMAL BRAIN CT WITHOUT CONTRAST. NO EVIDENCE OF METASTASES. NO EVIDENCE OF STROKE. . Assessment & Plan - Diagnosis (1) Severe sepsis Is this a current diagnosis for this admission?: Yes Plan: Continue IV fluids and antibiotics. Attempt to maintain map greater than 65. Repeat lactate improving. Pending cultures. Initiate patient on Zosyn and vancomycin (2) Transaminitis Is this a current diagnosis for this admission?: Yes Plan: Secondary to liver metastasis (3) Coagulopathy Is this a current diagnosis for this admission?: Yes Plan: Improving with the administration of vitamin K (4) Dehydration Is this a current diagnosis for this admission?: Yes Plan: Improved (5) Hyponatremia Is this a current diagnosis for this admission?: Yes Plan: Secondary to intravascular volume depletion Improving (6) Esophageal cancer Qualifiers: Malignant neoplasm of esophagus location: lower third Qualified Code(s): C15.5 - Malignant neoplasm of lower third of esophagus Is this a current diagnosis for this admission?: Yes Plan: With distant metastasis to the liver Patient is apparently slated to undergo chemotherapy. Discussed this case with oncology. Overall, patient has an exceptionally poor prognosis and I anticipate that despite whatever intervention is undergone for this patient that she will . She is a DNR. - Time Time Spent with patient: 25-34 minutes Medications reviewed and adjusted accordingly: Yes
[2017-09-01] MEDS: DOCUSATE SODIUM 100 MG CAPSULE PO SCH ×2 (10:07→18:13)
[2017-09-01] MEDS: POLYETHYLENE GLYCOL 3350 POWDER 17 GM/1 PACKET PO SCH (10:07)
[2017-09-01] MEDS: OXYCODONE HCL SR 10 MG TABLET PO SCH ×2 (10:14→21:19)
[2017-09-01] MEDS: MEGESTROL ACETATE SUSP 400 MG/10 ML UDCUP PO SCH (10:15)
[2017-09-02] MEDS: PIPERACILLIN SODIUM/TAZOBACTAM 3.375 GM in NORMAL SALINE 100 ML IV SCH ×4 (01:33→17:16)
[2017-09-02] MEDS: LANSOPRAZOLE 30 MG TAB.RAP.DR PO SCH ×2 (05:45→16:40)
[2017-09-02] MEDS: OXYCODONE HCL IR 5 MG TABLET PO PRN ×2 (05:45→16:40)
[2017-09-02] MEDS: VANCOMYCIN HCL 750 MG in DEXTROSE 5%-WATER 250 ML IV SCH ×2 (05:45→18:05)
[2017-09-02] MEDS: NORMAL SALINE 1000 ML 1,000 ML IV PRN (05:47)
[2017-09-02 06:42] LABS: HEMATOCRIT 38.9 % (36.0-47.0); HEMOGLOBIN 12.7 g/dL (12.0-15.5); HGB HCT DIFFERENCE -0.8; MEAN CORPUSCULAR HEMOGLOBIN 29.3 pg (27.0-33.4); MEAN CORPUSCULAR HGB CONC 32.8 g/dL (32.0-36.0); MEAN CORPUSCULAR VOLUME 89 fl (80-97); PROTHROMBIN TIME 19.1 SEC (11.4-15.4); RED BLOOD COUNT 4.36 10^6/uL (3.72-5.28); RED CELL DISTRIBUTION WIDTH 17.3 % (11.5-14.0); WHITE BLOOD COUNT 16.1 10^3/uL (4.0-10.5)
[2017-09-02 06:50] LABS: ALANINE AMINOTRANSFERASE 503 U/L (9-52); ALBUMIN 2.2 g/dL (3.5-5.0); ALKALINE PHOSPHATASE 335 U/L (38-126); ANION GAP 7 (5-19); BILIRUBIN,DIRECT 7.1 mg/dL (0.0-0.4); BILIRUBIN,TOTAL 8.7 mg/dL (0.2-1.3); BLOOD UREA NITROGEN 36 mg/dL (7-20); CALCIUM 9.7 mg/dL (8.4-10.2); CARBON DIOXIDE 25 mmol/L (22-30); CHLORIDE 99 mmol/L (98-107); CREATININE RESULT 1.01 mg/dL (0.52-1.25); GLUCOSE 106 mg/dL (75-110); POTASSIUM 4.6 mmol/L (3.6-5.0); SODIUM 131.3 mmol/L (137-145); TOTAL PROTEIN 5.3 g/dL (6.3-8.2)
[2017-09-02 07:11] LABS: ASPARTATE AMINO TRANSFERASE 1104 U/L (14-36)
[2017-09-02 07:15] LABS: ANISOCYTOSIS 1+; BAND NEUTROPHILS % (MANUAL) 3 % (3-5); BASOPHILS % (MANUAL) 0 % (0-2); BURR CELLS 1+; EOSINOPHILS % (MANUAL) 0 % (0-6); LYMPHOCYTES % (MANUAL) 7 % (13-45); OVALOCYTES SLIGHT; POIKILOCYTOSIS 1+; POLYCHROMASIA SLIGHT; SCHISTOCYTES SLIGHT; TOTAL CELLS COUNTED 100; TOXIC GRANULATION 1+; TOXIC VACUOLATION PRESENT
--- NOTE | 2017-09-02 08:36 | PDOC PROGRESS REPORT ---
Subjective Progress Note for:: 09/02/17 Subjective:: Patient seems to be a little bit better today, today had a long discussion with family, brother as well as daughter who is at bedside, liver enzymes as well as bilirubin has elevated today, explained dire situation, they seem to understand situation, other family is going to be coming into town Physical Exam Vital Signs: Temp Pulse Resp BP Pulse Ox 100.1 F 132 H 18 92/55 L 92 09/01/17 23:08 09/01/17 23:08 09/01/17 23:08 09/01/17 23:08 09/01/17 23:08 Intake & Output 09/01/17 09/02/17 09/03/17 06:59 06:59 06:59 Intake Total 3080 3880 Output Total 525 850 Balance 2555 3030 Weight 76 kg 75.7 kg General appearance: PRESENT: no acute distress, well-developed, well-nourished Head exam: PRESENT: atraumatic, normocephalic Eye exam: PRESENT: conjunctiva pink, EOMI, PERRLA. ABSENT: scleral icterus Ear exam: PRESENT: normal external ear exam Mouth exam: PRESENT: moist, tongue midline Neck exam: ABSENT: carotid bruit, JVD, lymphadenopathy, thyromegaly Respiratory exam: PRESENT: clear to auscultation héctor. ABSENT: rales, rhonchi, wheezes Cardiovascular exam: PRESENT: RRR. ABSENT: diastolic murmur, rubs, systolic murmur Pulses: PRESENT: normal dorsalis pedis pul Vascular exam: PRESENT: normal capillary refill GI/Abdominal exam: PRESENT: normal bowel sounds, soft. ABSENT: distended, guarding, mass, organolmegaly, rebound, tenderness Rectal exam: PRESENT: deferred Extremities exam: PRESENT: full ROM. ABSENT: calf tenderness, clubbing, pedal edema Neurological exam: PRESENT: alert, awake, oriented to person, oriented to place , oriented to time, oriented to situation, CN II-XII grossly intact. ABSENT: motor sensory deficit Psychiatric exam: PRESENT: appropriate affect, normal mood. ABSENT: homicidal ideation, suicidal ideation Skin exam: PRESENT: dry, intact, warm. ABSENT: cyanosis, rash Results Laboratory Results: 09/02/17 05:44 09/02/17 05:44 09/01/17 09/01/17 09/01/17 07:08 07:08 07:08 WBC 18.7 H RBC 4.15 Hgb 11.9 L Hct 36.9 MCV 89 MCH 28.7 MCHC 32.3 RDW 17.6 H Plt Count 348 Seg Neutrophils % Lymphocytes % Monocytes % Eosinophils % Basophils % Absolute Neutrophils Absolute Lymphocytes Absolute Monocytes Absolute Eosinophils Absolute Basophils Sodium 128.8 L Potassium 4.6 Chloride 93 L Carbon Dioxide 27 Anion Gap 9 BUN 38 H Creatinine 1.03 Est GFR ( Amer) > 60 Est GFR (Non-Af Amer) 54 L Glucose 142 H Calcium 9.4 Phosphorus 3.0 Magnesium 2.1 Total Bilirubin 7.1 H AST 845 H ALT 376 H Alkaline Phosphatase 367 H Total Protein 5.2 L Albumin 2.2 L 09/02/17 09/02/17 05:44 05:44 WBC 16.1 H RBC 4.36 Hgb 12.7 Hct 38.9 MCV 89 MCH 29.3 MCHC 32.8 RDW 17.3 H Plt Count 280 Seg Neutrophils % Not Reportable Lymphocytes % Not Reportable Monocytes % Not Reportable Eosinophils % Not Reportable Basophils % Not Reportable Absolute Neutrophils Not Reportable Absolute Lymphocytes Not Reportable Absolute Monocytes Not Reportable Absolute Eosinophils Not Reportable Absolute Basophils Not Reportable Sodium 131.3 L Potassium 4.6 Chloride 99 Carbon Dioxide 25 Anion Gap 7 BUN 36 H Creatinine 1.01 Est GFR ( Amer) > 60 Est GFR (Non-Af Amer) 55 L Glucose 106 Calcium 9.7 Phosphorus Magnesium Total Bilirubin 8.7 H AST 1104 H ALT 503 H Alkaline Phosphatase 335 H Total Protein 5.3 L Albumin 2.2 L Impressions: Chest X-Ray 08/31/17 12:05 IMPRESSION: Subsegmental atelectasis with no acute cardiopulmonary disease. Head CT 08/31/17 12:05 IMPRESSION: NORMAL BRAIN CT WITHOUT CONTRAST. NO EVIDENCE OF METASTASES. NO EVIDENCE OF STROKE. . 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
[2017-09-02] MEDS: MEGESTROL ACETATE SUSP 400 MG/10 ML UDCUP PO SCH (09:45)
[2017-09-02] MEDS: OXYCODONE HCL SR 10 MG TABLET PO SCH ×2 (09:45→21:20)
[2017-09-02] MEDS: POLYETHYLENE GLYCOL 3350 POWDER 17 GM/1 PACKET PO SCH (09:45)
[2017-09-02] MEDS: DOCUSATE SODIUM 100 MG CAPSULE PO SCH ×2 (09:46→16:39)
--- NOTE | 2017-09-02 18:03 | PDOC PROGRESS REPORT ---
Subjective Progress Note for:: 09/02/17 Subjective:: The patient is sleeping and not arousable this afternoon. Her family is gathered at the bedside. Review of systems could not be obtained. The family discussed the situation with Dr. Fuchs today. We are going to obtain further laboratory studies in the morning. They wanted to do what we could with IV fluids and IV antibiotics for the next couple of days. If she does not improve she likely will be transition to comfort measures. I did confirm this plan with the patient's family. I spent quite some time discussing goals of care and all of their questions were answered. Physical Exam Vital Signs: Temp Pulse Resp BP Pulse Ox 98.8 F 129 H 18 91/50 L 95 09/02/17 11:06 09/02/17 11:06 09/02/17 11:06 09/02/17 11:06 09/02/17 11:06 Intake & Output 09/01/17 09/02/17 09/03/17 06:59 06:59 06:59 Intake Total 3080 3880 Output Total 525 850 Balance 2555 3030 Weight 76 kg 75.7 kg General appearance: PRESENT: no acute distress, other - She is quite ill- appearing Head exam: PRESENT: atraumatic Mouth exam: PRESENT: dry mucosa Respiratory exam: PRESENT: clear to auscultation héctor, crackles, other - She is diminished in the lower bases with some fine crackles on the right.. ABSENT: rales, rhonchi, wheezes Cardiovascular exam: PRESENT: RRR. ABSENT: diastolic murmur, rubs, systolic murmur GI/Abdominal exam: PRESENT: distended, hypoactive bowel sounds. ABSENT: guarding, rebound, rigid Rectal exam: PRESENT: deferred Neurological exam: ABSENT: alert, awake, oriented to person, oriented to place, oriented to time, oriented to situation Psychiatric exam: ABSENT: agitated, anxious Skin exam: PRESENT: dry, intact, warm. ABSENT: cyanosis, rash Results Laboratory Results: 09/02/17 05:44 09/02/17 05:44 09/02/17 09/02/17 05:44 05:44 WBC 16.1 H RBC 4.36 Hgb 12.7 Hct 38.9 MCV 89 MCH 29.3 MCHC 32.8 RDW 17.3 H Plt Count 280 Seg Neutrophils % Not Reportable Lymphocytes % Not Reportable Monocytes % Not Reportable Eosinophils % Not Reportable Basophils % Not Reportable Absolute Neutrophils Not Reportable Absolute Lymphocytes Not Reportable Absolute Monocytes Not Reportable Absolute Eosinophils Not Reportable Absolute Basophils Not Reportable Sodium 131.3 L Potassium 4.6 Chloride 99 Carbon Dioxide 25 Anion Gap 7 BUN 36 H Creatinine 1.01 Est GFR ( Amer) > 60 Est GFR (Non-Af Amer) 55 L Glucose 106 Calcium 9.7 Total Bilirubin 8.7 H AST 1104 H ALT 503 H Alkaline Phosphatase 335 H Total Protein 5.3 L Albumin 2.2 L 08/31/17 16:21 Catheterized Urine Urine Culture - Final NO GROWTH 2 DAYS Impressions: Chest X-Ray 08/31/17 12:05 IMPRESSION: Subsegmental atelectasis with no acute cardiopulmonary disease. Head CT 08/31/17 12:05 IMPRESSION: NORMAL BRAIN CT WITHOUT CONTRAST. NO EVIDENCE OF METASTASES. NO EVIDENCE OF STROKE. . Assessment & Plan - Diagnosis (1) Severe sepsis Is this a current diagnosis for this admission?: Yes Plan: The patient has evidence of sepsis. The source is likely abdominal. She has leukocytosis, tachycardia, tachypnea, elevated lactic acid and fever. She is encephalopathic with evidence of organ failure. After discussion with oncology to say a decision has been made to try some antibiotics for the next couple of days. Currently on IV vancomycin and Zosyn. We will also continue IV fluids. (2) Elevated liver function tests Plan: Markedly elevated liver function tests due to liver involvement from her stage IV esophageal cancer. We will check labs in the morning. 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 She has significant liver involvement. (4) Coagulopathy Is this a current diagnosis for this admission?: Yes Plan: Secondary to worsening liver failure. (5) Dehydration Plan: Continue IV fluids for now. (6) Hyponatremia Is this a current diagnosis for this admission?: Yes Plan: Somewhat improved. (7) Do not resuscitate Plan: Long discussion was had with the patient's family today. They do understand that she is reaching the end of her life. They would like to do with the can with IV antibiotics and IV fluids for the next couple of days. If she does not improve they will be comfortable transitioning her to comfort measures. - Time Time Spent with patient: 35 or more minutes - Inpatient Certification Medical Necessity: Need For IV Fluids - Inpatient hospitalization remains necessary. This patient has liver failure due to liver involvement from stage IV metastatic esophageal cancer. The family would like to do what they can for her sepsis with IV antibiotics and fluids. If she does not improve she likely will be transition to comfort measures. At that point they would consider a possible transition to home hospice., Need for IV Antibiotics, Other
[2017-09-03] MEDS: VANCOMYCIN HCL 750 MG in DEXTROSE 5%-WATER 250 ML IV SCH ×2 (05:40→17:59)
[2017-09-03] MEDS: PIPERACILLIN SODIUM/TAZOBACTAM 3.375 GM in NORMAL SALINE 100 ML IV SCH ×6 (05:42→23:43)
[2017-09-03] MEDS: LANSOPRAZOLE 30 MG TAB.RAP.DR PO SCH ×2 (05:42→16:18)
[2017-09-03 07:02] LABS: HEMATOCRIT 43.3 % (36.0-47.0); HEMOGLOBIN 13.8 g/dL (12.0-15.5); HGB HCT DIFFERENCE -1.9; MEAN CORPUSCULAR HEMOGLOBIN 28.8 pg (27.0-33.4); MEAN CORPUSCULAR HGB CONC 31.9 g/dL (32.0-36.0); MEAN CORPUSCULAR VOLUME 90 fl (80-97); RED BLOOD COUNT 4.79 10^6/uL (3.72-5.28); WHITE BLOOD COUNT 20.1 10^3/uL (4.0-10.5)
[2017-09-03 07:32] LABS: BAND NEUTROPHILS % (MANUAL) 1 % (3-5); BASOPHILS % (MANUAL) 0 % (0-2); EOSINOPHILS % (MANUAL) 0 % (0-6); HYPOCHROMASIA 2+; LYMPHOCYTES % (MANUAL) 0 % (13-45); TOTAL CELLS COUNTED 100; TOXIC GRANULATION 2+; TOXIC VACUOLATION PRESENT
[2017-09-03 07:33] LABS: ANISOCYTOSIS 2+; POIKILOCYTOSIS SLIGHT; POLYCHROMASIA SLIGHT; SCHISTOCYTES SLIGHT
[2017-09-03 08:17] LABS: ALANINE AMINOTRANSFERASE 426 U/L (9-52); ALBUMIN 2.2 g/dL (3.5-5.0); ALKALINE PHOSPHATASE 330 U/L (38-126); ANION GAP 9 (5-19); ASPARTATE AMINO TRANSFERASE 676 U/L (14-36); BILIRUBIN,DIRECT 9.1 mg/dL (0.0-0.4); BILIRUBIN,TOTAL 10.8 mg/dL (0.2-1.3); BLOOD UREA NITROGEN 29 mg/dL (7-20); CALCIUM 9.8 mg/dL (8.4-10.2); CARBON DIOXIDE 24 mmol/L (22-30); CHLORIDE 100 mmol/L (98-107); GLUCOSE 111 mg/dL (75-110); POTASSIUM 4.1 mmol/L (3.6-5.0); SODIUM 132.8 mmol/L (137-145); TOTAL PROTEIN 5.5 g/dL (6.3-8.2)
--- NOTE | 2017-09-03 08:36 | PDOC PROGRESS REPORT ---
Subjective Progress Note for:: 09/03/17 Subjective:: No acute events overnight but patient is very lethargic, having a lot of difficulty swallowing, so we discussed transitioning her medication to liquid. We also had a long conversation with family, both daughter and brother were at bedside. We are awaiting labs today but I do expect that the bilirubin as well as transaminases will be worsened. I believe will need to be transitioning to hospice soon, they would prefer the patient to be at home, arrangements can be made for that I explained, we will make a decision on that tomorrow. Physical Exam Vital Signs: Temp Pulse Resp BP Pulse Ox 98.7 F 111 H 16 98/59 L 95 09/02/17 23:28 09/02/17 23:28 09/02/17 23:28 09/02/17 23:28 09/02/17 23:28 Intake & Output 09/02/17 09/03/17 09/04/17 06:59 06:59 06:59 Intake Total 3880 3750 Output Total 850 800 Balance 3030 2950 Weight 75.7 kg 75.6 kg General appearance: PRESENT: no acute distress, well-developed, well-nourished Head exam: PRESENT: atraumatic, normocephalic Eye exam: PRESENT: conjunctiva pink, EOMI, PERRLA. ABSENT: scleral icterus Ear exam: PRESENT: normal external ear exam Mouth exam: PRESENT: moist, tongue midline Neck exam: ABSENT: carotid bruit, JVD, lymphadenopathy, thyromegaly Respiratory exam: PRESENT: clear to auscultation héctor. ABSENT: rales, rhonchi, wheezes Cardiovascular exam: PRESENT: RRR. ABSENT: diastolic murmur, rubs, systolic murmur Pulses: PRESENT: normal dorsalis pedis pul Vascular exam: PRESENT: normal capillary refill GI/Abdominal exam: PRESENT: normal bowel sounds, soft. ABSENT: distended, guarding, mass, organolmegaly, rebound, tenderness Rectal exam: PRESENT: deferred Extremities exam: PRESENT: full ROM. ABSENT: calf tenderness, clubbing, pedal edema Neurological exam: PRESENT: alert, awake, oriented to person, oriented to place , oriented to time, oriented to situation, CN II-XII grossly intact. ABSENT: motor sensory deficit Psychiatric exam: PRESENT: appropriate affect, normal mood. ABSENT: homicidal ideation, suicidal ideation Skin exam: PRESENT: dry, intact, warm. ABSENT: cyanosis, rash Results Laboratory Results: 09/03/17 05:52 09/03/17 07:27 09/03/17 09/03/17 09/03/17 05:52 05:52 07:27 WBC 20.1 H RBC 4.79 Hgb 13.8 Hct 43.3 MCV 90 MCH 28.8 MCHC 31.9 L RDW 18.0 H Plt Count 184 Seg Neutrophils % Not Reportable Lymphocytes % Not Reportable Monocytes % Not Reportable Eosinophils % Not Reportable Basophils % Not Reportable Absolute Neutrophils Not Reportable Absolute Lymphocytes Not Reportable Absolute Monocytes Not Reportable Absolute Eosinophils Not Reportable Absolute Basophils Not Reportable Sodium Cancelled 132.8 L Potassium Cancelled 4.1 Chloride Cancelled 100 Carbon Dioxide Cancelled 24 Anion Gap Cancelled 9 BUN Cancelled 29 H Creatinine Cancelled 0.70 Est GFR ( Amer) Cancelled > 60 Est GFR (Non-Af Amer) Cancelled > 60 Glucose Cancelled 111 H Calcium Cancelled 9.8 Total Bilirubin Cancelled 10.8 H AST Cancelled 676 H ALT Cancelled 426 H Alkaline Phosphatase Cancelled 330 H Total Protein Cancelled 5.5 L Albumin Cancelled 2.2 L 08/31/17 16:21 Catheterized Urine Urine Culture - Final NO GROWTH 2 DAYS Impressions: Chest X-Ray 08/31/17 12:05 IMPRESSION: Subsegmental atelectasis with no acute cardiopulmonary disease. Head CT 08/31/17 12:05 IMPRESSION: NORMAL BRAIN CT WITHOUT CONTRAST. NO EVIDENCE OF METASTASES. NO EVIDENCE OF STROKE. . 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 Is this a current diagnosis for this admission?: Yes Plan: Unlikely that we can get further therapy but we will continue to monitor her condition and make a decision in the next 24 hours on next steps of care (3) Transaminitis Is this a current diagnosis for this admission?: Yes Plan: Secondary to liver infiltration from cancer as well as severe sepsis, awaiting labs today - Time Time Spent with patient: 35 or more minutes Critical Time spent with patient: 35 or more minutes - Inpatient Certification Based on my medical assessment, after consideration of the patient's comorbidities, presenting symptoms, or acuity I expect that the services needed warrant INPATIENT care.: Yes I certify that my determination is in accordance with my understanding of Medicare's requirements for reasonable and necessary INPATIENT services [42 CFR 412.3e].: Yes Medical Necessity: Failure to Improve With Outpatient Therapy, Need for Pain Control, Need for IV Antibiotics
[2017-09-03] MEDS ORDERED: ONDANSETRON HCL INJ/PF 4 MG/2 ML SDV IV PRN (09:30)
--- NOTE | 2017-09-03 09:48 | PDOC PROGRESS REPORT ---
Subjective Progress Note for:: 09/03/17 Subjective:: The patient is awake this morning. She is alert and oriented 2. She knew she was in the hospital but thought that she was in [place]. She did know what her name was. Overall her labs have worsened. This was discussed at length with the patient's family at the bedside. The patient was seen by Dr. Fuchs this morning. We are going to try 1 more day of parenteral antibiotics and fluids to see if it will make a difference. Unfortunately her bilirubin is up to 10.8. We discussed at length how to proceed if her labs do not improve tomorrow. We discussed home hospice services. The patient's family is now wondering whether it would be possible for her to stay in the hospital for end- of-life care. We discussed a transition to comfort measures and withdrawing care and just keeping the patient comfortable with pain medications and medications for agitation. We discussed that would mean no more fluids or parenteral antibiotics. They are going to discuss this is a family and then want to discuss further with oncology tomorrow morning. A review of systems could not be obtained from the patient. She was able to tell me she was not having pain. Physical Exam Vital Signs: Temp Pulse Resp BP Pulse Ox 97.8 F 117 H 17 110/67 96 09/03/17 07:53 09/03/17 07:53 09/03/17 07:53 09/03/17 07:53 09/03/17 07:53 Intake & Output 09/02/17 09/03/17 09/04/17 06:59 06:59 06:59 Intake Total 3880 3750 Output Total 850 800 Balance 3030 2950 Weight 75.7 kg 75.6 kg General appearance: PRESENT: no acute distress, disheveled, thin, other - Quite jaundiced Head exam: PRESENT: atraumatic Eye exam: PRESENT: scleral icterus Mouth exam: PRESENT: moist, tongue midline Respiratory exam: PRESENT: clear to auscultation héctor. ABSENT: rales, rhonchi, wheezes Cardiovascular exam: PRESENT: RRR. ABSENT: diastolic murmur, rubs, systolic murmur GI/Abdominal exam: PRESENT: distended, hypoactive bowel sounds, soft, other - She appears to have some ascites.. ABSENT: guarding, mass, rebound, tenderness Rectal exam: PRESENT: deferred Neurological exam: PRESENT: altered, awake, oriented to person, oriented to place. ABSENT: alert, oriented to time, oriented to situation Psychiatric exam: ABSENT: agitated, anxious Skin exam: PRESENT: jaundice Results Laboratory Results: 09/03/17 05:52 09/03/17 07:27 09/03/17 09/03/17 09/03/17 05:52 05:52 07:27 WBC 20.1 H RBC 4.79 Hgb 13.8 Hct 43.3 MCV 90 MCH 28.8 MCHC 31.9 L RDW 18.0 H Plt Count 184 Seg Neutrophils % Not Reportable Lymphocytes % Not Reportable Monocytes % Not Reportable Eosinophils % Not Reportable Basophils % Not Reportable Absolute Neutrophils Not Reportable Absolute Lymphocytes Not Reportable Absolute Monocytes Not Reportable Absolute Eosinophils Not Reportable Absolute Basophils Not Reportable Sodium Cancelled 132.8 L Potassium Cancelled 4.1 Chloride Cancelled 100 Carbon Dioxide Cancelled 24 Anion Gap Cancelled 9 BUN Cancelled 29 H Creatinine Cancelled 0.70 Est GFR ( Amer) Cancelled > 60 Est GFR (Non-Af Amer) Cancelled > 60 Glucose Cancelled 111 H Calcium Cancelled 9.8 Total Bilirubin Cancelled 10.8 H AST Cancelled 676 H ALT Cancelled 426 H Alkaline Phosphatase Cancelled 330 H Total Protein Cancelled 5.5 L Albumin Cancelled 2.2 L 08/31/17 16:21 Catheterized Urine Urine Culture - Final NO GROWTH 2 DAYS Impressions: Chest X-Ray 08/31/17 12:05 IMPRESSION: Subsegmental atelectasis with no acute cardiopulmonary disease. Head CT 08/31/17 12:05 IMPRESSION: NORMAL BRAIN CT WITHOUT CONTRAST. NO EVIDENCE OF METASTASES. NO EVIDENCE OF STROKE. . Assessment & Plan - Diagnosis (1) Severe sepsis Is this a current diagnosis for this admission?: Yes Plan: The patient has evidence of sepsis. The source is likely abdominal. She has leukocytosis, tachycardia, tachypnea, elevated lactic acid and fever. She is encephalopathic with evidence of organ failure. At this point the patient family wants to continue parenteral antibiotics and fluids for 1 more day. Oncology is going to talk to them tomorrow regarding a transition to comfort driven approach in light of her worsening bilirubin. We certainly appreciate their assistance with this difficult situation. Currently on IV vancomycin and Zosyn. This is day #3 of treatment. We will also continue IV fluids for now. (2) Elevated liver function tests Plan: Markedly elevated liver function tests due to liver involvement from her stage IV esophageal cancer. We will check labs in the morning. Her bilirubin is up to 10.8 today. The significance of this was discussed with the family. 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 She has significant liver involvement which appears to be worsening daily. (4) Coagulopathy Is this a current diagnosis for this admission?: Yes Plan: Secondary to worsening liver failure. (5) Dehydration Plan: Continue IV fluids for now. (6) Hyponatremia Is this a current diagnosis for this admission?: Yes Plan: Somewhat improved. This is related to her underlying malignancy. - Time Time Spent with patient: 35 or more minutes - Inpatient Certification Medical Necessity: Need For IV Fluids, Need for IV Antibiotics, Other - Inpatient hospitalization remains necessary. For now the patient is going to continue parenteral fluids and antibiotics. Her prognosis is quite poor and it is likely that she will transition to comfort measures tomorrow. The patient's family is going to discuss whether they want to pursue home hospice services versus try to keep her in the hospital for end-of-life care.
[2017-09-03] MEDS: POLYETHYLENE GLYCOL 3350 POWDER 17 GM/1 PACKET PO SCH (13:40)
[2017-09-03] MEDS: DOCUSATE SODIUM 100 MG CAPSULE PO SCH ×2 (13:40→18:02)
[2017-09-03] MEDS: MEGESTROL ACETATE SUSP 400 MG/10 ML UDCUP PO SCH (13:40)
[2017-09-03] MEDS: HYDROCOD/ACETAMIN 7.5-325 MG/15 ML ORAL SOLN UDCUP PO PRN ×2 (14:18→23:43)
[2017-09-04 04:50] LABS: HEMATOCRIT 42.3 % (36.0-47.0); HEMOGLOBIN 13.8 g/dL (12.0-15.5); HGB HCT DIFFERENCE -0.9; MEAN CORPUSCULAR HEMOGLOBIN 29.5 pg (27.0-33.4); MEAN CORPUSCULAR HGB CONC 32.6 g/dL (32.0-36.0); MEAN CORPUSCULAR VOLUME 90 fl (80-97); RED BLOOD COUNT 4.68 10^6/uL (3.72-5.28); RED CELL DISTRIBUTION WIDTH 18.3 % (11.5-14.0)
[2017-09-04 05:08] LABS: ALANINE AMINOTRANSFERASE 341 U/L (9-52); ALBUMIN 2.1 g/dL (3.5-5.0); ALKALINE PHOSPHATASE 333 U/L (38-126); ANION GAP 9 (5-19); ASPARTATE AMINO TRANSFERASE 483 U/L (14-36); BILIRUBIN,DIRECT 9.3 mg/dL (0.0-0.4); BILIRUBIN,TOTAL 11.1 mg/dL (0.2-1.3); BLOOD UREA NITROGEN 25 mg/dL (7-20); CALCIUM 9.9 mg/dL (8.4-10.2); CARBON DIOXIDE 22 mmol/L (22-30); CHLORIDE 103 mmol/L (98-107); CREATININE RESULT 0.59 mg/dL (0.52-1.25); GLUCOSE 115 mg/dL (75-110); POTASSIUM 4.2 mmol/L (3.6-5.0); SODIUM 133.7 mmol/L (137-145); TOTAL PROTEIN 5.5 g/dL (6.3-8.2)
[2017-09-04 05:14] LABS: BASOPHILS % (MANUAL) 0 % (0-2); EOSINOPHILS % (MANUAL) 0 % (0-6); LYMPHOCYTES % (MANUAL) 4 % (13-45); TOTAL CELLS COUNTED 100
[2017-09-04 05:15] LABS: TOXIC GRANULATION 1+; TOXIC VACUOLATION PRESENT
[2017-09-04 05:16] LABS: BURR CELLS 1+; POIKILOCYTOSIS 1+; POLYCHROMASIA SLIGHT; TARGET CELLS SLIGHT; TEAR DROP CELLS SLIGHT
[2017-09-04 05:19] LABS: ANISOCYTOSIS 2+; HYPOCHROMASIA SLIGHT; OVALOCYTES SLIGHT
[2017-09-04] MEDS: LANSOPRAZOLE 30 MG TAB.RAP.DR PO SCH ×2 (05:22→16:39)
[2017-09-04] MEDS: NORMAL SALINE 1000 ML 1,000 ML IV PRN ×2 (05:42→05:43)
[2017-09-04] MEDS: VANCOMYCIN HCL 750 MG in DEXTROSE 5%-WATER 250 ML IV SCH ×2 (05:42→17:54)
[2017-09-04] MEDS: HYDROCOD/ACETAMIN 7.5-325 MG/15 ML ORAL SOLN UDCUP PO PRN ×2 (05:42→11:42)
[2017-09-04] MEDS: PIPERACILLIN SODIUM/TAZOBACTAM 3.375 GM in NORMAL SALINE 100 ML IV SCH ×3 (05:42→17:38)
--- NOTE | 2017-09-04 09:11 | PDOC PROGRESS REPORT ---
Subjective Progress Note for:: 09/04/17 Subjective:: Patient looks worse this morning, has more jaundiced, bilirubin most recently was up to 11, she does have more discomfort this morning as well Physical Exam Vital Signs: Temp Pulse Resp BP Pulse Ox 98.7 F 118 H 24 H 99/58 L 95 09/04/17 08:00 09/04/17 08:00 09/04/17 08:00 09/04/17 08:00 09/04/17 08:00 Intake & Output 09/03/17 09/04/17 09/05/17 06:59 06:59 06:59 Intake Total 3750 6069 Output Total 800 500 Balance 2950 5569 Weight 75.6 kg 74.2 kg General appearance: PRESENT: no acute distress, well-developed, well-nourished Head exam: PRESENT: atraumatic, normocephalic Eye exam: PRESENT: conjunctiva pink, EOMI, PERRLA. ABSENT: scleral icterus Ear exam: PRESENT: normal external ear exam Mouth exam: PRESENT: moist, tongue midline Neck exam: ABSENT: carotid bruit, JVD, lymphadenopathy, thyromegaly Respiratory exam: PRESENT: clear to auscultation héctor. ABSENT: rales, rhonchi, wheezes Cardiovascular exam: PRESENT: RRR. ABSENT: diastolic murmur, rubs, systolic murmur Pulses: PRESENT: normal dorsalis pedis pul Vascular exam: PRESENT: normal capillary refill GI/Abdominal exam: PRESENT: normal bowel sounds, soft. ABSENT: distended, guarding, mass, organolmegaly, rebound, tenderness Rectal exam: PRESENT: deferred Extremities exam: PRESENT: full ROM. ABSENT: calf tenderness, clubbing, pedal edema Neurological exam: PRESENT: alert, awake, oriented to person, oriented to place , oriented to time, oriented to situation, CN II-XII grossly intact. ABSENT: motor sensory deficit Psychiatric exam: PRESENT: appropriate affect, normal mood. ABSENT: homicidal ideation, suicidal ideation Skin exam: PRESENT: dry, intact, warm. ABSENT: cyanosis, rash Results Laboratory Results: 09/04/17 04:25 09/04/17 04:25 09/04/17 09/04/17 04:25 04:25 WBC 19.0 H RBC 4.68 Hgb 13.8 Hct 42.3 MCV 90 MCH 29.5 MCHC 32.6 RDW 18.3 H Plt Count 181 Seg Neutrophils % Not Reportable Lymphocytes % Not Reportable Monocytes % Not Reportable Eosinophils % Not Reportable Basophils % Not Reportable Absolute Neutrophils Not Reportable Absolute Lymphocytes Not Reportable Absolute Monocytes Not Reportable Absolute Eosinophils Not Reportable Absolute Basophils Not Reportable Sodium 133.7 L Potassium 4.2 Chloride 103 Carbon Dioxide 22 Anion Gap 9 BUN 25 H Creatinine 0.59 Est GFR ( Amer) > 60 Est GFR (Non-Af Amer) > 60 Glucose 115 H Calcium 9.9 Total Bilirubin 11.1 H AST 483 H ALT 341 H Alkaline Phosphatase 333 H Total Protein 5.5 L Albumin 2.1 L Impressions: Chest X-Ray 08/31/17 12:05 IMPRESSION: Subsegmental atelectasis with no acute cardiopulmonary disease. Head CT 08/31/17 12:05 IMPRESSION: NORMAL BRAIN CT WITHOUT CONTRAST. NO EVIDENCE OF METASTASES. NO EVIDENCE OF STROKE. . 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 Continue with current pain regimen, I recommended the use of IV pain medication but family was hesitant right now, we will added on once they are ready. (3) Transaminitis Is this a current diagnosis for this admission?: Yes Plan: Worsening, secondary to liver disease from cancer - Time Time Spent with patient: 35 or more minutes Critical Time spent with patient: 35 or more minutes - Inpatient Certification Based on my medical assessment, after consideration of the patient's comorbidities, presenting symptoms, or acuity I expect that the services needed warrant INPATIENT care.: Yes I certify that my determination is in accordance with my understanding of Medicare's requirements for reasonable and necessary INPATIENT services [42 CFR 412.3e].: Yes Medical Necessity: Need For IV Fluids, Need for Pain Control, Need for IV Antibiotics
[2017-09-04] MEDS: POLYETHYLENE GLYCOL 3350 POWDER 17 GM/1 PACKET PO SCH (10:59)
[2017-09-04] MEDS: DOCUSATE SODIUM 100 MG CAPSULE PO SCH ×2 (10:59→17:55)
[2017-09-04] MEDS: MEGESTROL ACETATE SUSP 400 MG/10 ML UDCUP PO SCH (11:43)
--- NOTE | 2017-09-04 12:46 | PDOC PROGRESS REPORT ---
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 She now has significant liver involvement. She came into the hospital with a septic picture thought to be secondary to some sort of abdominal process. She was started on broad-spectrum IV antibiotics and fluids. Discussions have been ongoing with the patient's family over the course of the hospitalization. They have been working with her oncologist and agreed to a few days of fluids and antibiotics just to see if there was a possibility this could be turned around. The family is now coming along and does realize that she likely is approaching the end of her life. They are going to discuss further with oncology tomorrow but likely will transition her to comfort measures. At this point the family is going to have a difficult time taking care of her at home due to the daughter needing to work and the schedules of the family. She has had increasing bilirubin every day and worsening evidence of liver failure. We are going to try to keep the patient here in the hospital on comfort measures until she passes. If it does become a longer more drawn out process they would consider transitioning to home hospice but for now would like to keep her in the hospital due to the fact that they will not be someone there with her [id number] at home. Today when I saw the patient she is resting comfortably. She is unresponsive. The patient's family states she woke up and said a few words earlier but has not been responsive since that time. A review of systems could not be obtained. Physical Exam Vital Signs: Temp Pulse Resp BP Pulse Ox 98.7 F 118 H 24 H 99/58 L 95 09/04/17 08:00 09/04/17 08:00 09/04/17 08:00 09/04/17 08:00 09/04/17 08:00 Intake & Output 09/03/17 09/04/17 09/05/17 06:59 06:59 06:59 Intake Total 3750 6069 Output Total 800 500 Balance 2950 5569 Weight 75.6 kg 74.2 kg General appearance: PRESENT: no acute distress, thin, other - She is quite jaundiced Head exam: PRESENT: atraumatic, other - Bitemporal wasting Mouth exam: PRESENT: moist Respiratory exam: PRESENT: clear to auscultation héctor, other - She is diminished in the lower bases bilaterally. This is a limited exam as the patient will not cooperate to take a deep breath.. ABSENT: rales, rhonchi, wheezes Cardiovascular exam: PRESENT: RRR. ABSENT: diastolic murmur, rubs, systolic murmur GI/Abdominal exam: PRESENT: ascites, diminished bowel sounds, distended, tenderness. ABSENT: rebound, rigid Rectal exam: PRESENT: deferred Extremities exam: PRESENT: other - She is developing edema in all 4 of her extremities. Neurological exam: ABSENT: awake Skin exam: PRESENT: jaundice Results Laboratory Results: 09/04/17 04:25 09/04/17 04:25 09/04/17 09/04/17 04:25 04:25 WBC 19.0 H RBC 4.68 Hgb 13.8 Hct 42.3 MCV 90 MCH 29.5 MCHC 32.6 RDW 18.3 H Plt Count 181 Seg Neutrophils % Not Reportable Lymphocytes % Not Reportable Monocytes % Not Reportable Eosinophils % Not Reportable Basophils % Not Reportable Absolute Neutrophils Not Reportable Absolute Lymphocytes Not Reportable Absolute Monocytes Not Reportable Absolute Eosinophils Not Reportable Absolute Basophils Not Reportable Sodium 133.7 L Potassium 4.2 Chloride 103 Carbon Dioxide 22 Anion Gap 9 BUN 25 H Creatinine 0.59 Est GFR ( Amer) > 60 Est GFR (Non-Af Amer) > 60 Glucose 115 H Calcium 9.9 Total Bilirubin 11.1 H AST 483 H ALT 341 H Alkaline Phosphatase 333 H Total Protein 5.5 L Albumin 2.1 L Impressions: Chest X-Ray 08/31/17 12:05 IMPRESSION: Subsegmental atelectasis with no acute cardiopulmonary disease. Head CT 08/31/17 12:05 IMPRESSION: NORMAL BRAIN CT WITHOUT CONTRAST. NO EVIDENCE OF METASTASES. NO EVIDENCE OF STROKE. . Assessment & Plan - Diagnosis (1) Severe sepsis Is this a current diagnosis for this admission?: Yes Plan: The patient has evidence of sepsis. The source is likely abdominal. She has leukocytosis, tachycardia, tachypnea, elevated lactic acid and fever. She is encephalopathic with evidence of organ failure. At this point the patient family wants to continue parenteral antibiotics and fluids for 1 more day. Oncology is discussing with the family a transition to comfort measures. The patient's family would like her to stay in the hospital until she passes if possible. If we withdraw care I do not really think this is going to be a very long process in light of her worsening bilirubin. We are going to check labs one more time tomorrow at the request of the family. The family is beginning to accept that she is approaching the end of her life. (2) Elevated liver function tests Plan: Markedly elevated liver function tests due to liver involvement from her stage IV esophageal cancer. We will check labs in the morning. Her bilirubin is up to 11.1 today. The significance of this was discussed with the family. 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 She has significant liver involvement which appears to be worsening daily. (4) Coagulopathy Is this a current diagnosis for this admission?: Yes Plan: Secondary to worsening liver failure. (5) Dehydration Plan: Continue IV fluids for now. Oncology titrated these downwards today as she is developing edema (6) Hyponatremia Is this a current diagnosis for this admission?: Yes Plan: Somewhat improved. This is related to her underlying malignancy. - Time Time Spent with patient: 35 or more minutes - Inpatient Certification Medical Necessity: Need For IV Fluids, Need for IV Antibiotics - Inpatient hospitalization remains necessary. We are going to continue IV antibiotics and IV fluids for 1 more day. She will likely transition to comfort measures and we will keep her comfortable in the hospital with parenteral narcotics hopefully until she passes.
[2017-09-04] MEDS: HYDROMORPHONE HCL INJ/PF 2 MG/ML AMPULE IV PRN ×2 (17:52→21:27)
[2017-09-05] MEDS: PIPERACILLIN SODIUM/TAZOBACTAM 3.375 GM in NORMAL SALINE 100 ML IV SCH ×2 (00:02→05:49)
[2017-09-05] MEDS: LANSOPRAZOLE 30 MG TAB.RAP.DR PO SCH (05:48)
[2017-09-05] MEDS: HYDROMORPHONE HCL INJ/PF 2 MG/ML AMPULE IV PRN ×6 (05:53→23:58)
[2017-09-05] MEDS: NORMAL SALINE 1000 ML 1,000 ML IV PRN (06:00)
[2017-09-05] MEDS: VANCOMYCIN HCL 750 MG in DEXTROSE 5%-WATER 250 ML IV SCH (06:42)
[2017-09-05] MEDS: POLYETHYLENE GLYCOL 3350 POWDER 17 GM/1 PACKET PO SCH (10:21)
[2017-09-05] MEDS: MEGESTROL ACETATE SUSP 400 MG/10 ML UDCUP PO SCH (10:21)
[2017-09-05] MEDS: DOCUSATE SODIUM 100 MG CAPSULE PO SCH (10:21)
--- NOTE | 2017-09-05 10:37 | PDOC PROGRESS REPORT ---
Subjective Progress Note for:: 09/05/17 Subjective:: We will continue the comfort care measures, Today had a long conversation with family and daughter, we will stop all unnecessary medications, DC antibiotics, DC IV fluids, I have put those orders in Physical Exam Vital Signs: Temp Pulse Resp BP Pulse Ox 97.6 F 121 H 12 102/55 L 93 09/05/17 07:27 09/05/17 07:27 09/05/17 07:27 09/05/17 07:27 09/05/17 07:27 Intake & Output 09/04/17 09/05/17 09/06/17 06:59 06:59 06:59 Intake Total 6069 2901 Output Total 500 230 Balance 5569 2671 Weight 74.2 kg 89.4 kg General appearance: PRESENT: no acute distress, well-developed, well-nourished Head exam: PRESENT: atraumatic, normocephalic Eye exam: PRESENT: conjunctiva pink, EOMI, PERRLA. ABSENT: scleral icterus Ear exam: PRESENT: normal external ear exam Mouth exam: PRESENT: moist, tongue midline Neck exam: ABSENT: carotid bruit, JVD, lymphadenopathy, thyromegaly Respiratory exam: PRESENT: clear to auscultation héctor. ABSENT: rales, rhonchi, wheezes Cardiovascular exam: PRESENT: RRR. ABSENT: diastolic murmur, rubs, systolic murmur Pulses: PRESENT: normal dorsalis pedis pul Vascular exam: PRESENT: normal capillary refill GI/Abdominal exam: PRESENT: normal bowel sounds, soft. ABSENT: distended, guarding, mass, organolmegaly, rebound, tenderness Rectal exam: PRESENT: deferred Extremities exam: PRESENT: full ROM. ABSENT: calf tenderness, clubbing, pedal edema Neurological exam: PRESENT: alert, awake, oriented to person, oriented to place , oriented to time, oriented to situation, CN II-XII grossly intact. ABSENT: motor sensory deficit Psychiatric exam: PRESENT: appropriate affect, normal mood. ABSENT: homicidal ideation, suicidal ideation Skin exam: PRESENT: dry, intact, warm. ABSENT: cyanosis, rash Results Laboratory Results: 09/04/17 04:25 09/04/17 04:25 Impressions: Chest X-Ray 08/31/17 12:05 IMPRESSION: Subsegmental atelectasis with no acute cardiopulmonary disease. Head CT 08/31/17 12:05 IMPRESSION: NORMAL BRAIN CT WITHOUT CONTRAST. NO EVIDENCE OF METASTASES. NO EVIDENCE OF STROKE. . 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
[2017-09-05] MEDS ORDERED: NORMAL SALINE 1000 ML 1,000 ML IV ONE (20:40)
[2017-09-05 20:55] VITALS: BP 66/40
[2017-09-05] MEDS ORDERED: LORAZEPAM INJ 2 MG/1 ML VIAL IV PRN (22:15)
[2017-09-06] MEDS: HYDROMORPHONE HCL INJ/PF 2 MG/ML AMPULE IV PRN (03:52)
--- NOTE | 2017-09-06 09:18 | DEATH SUMMARY E ---
Summary NAME: JULIA MELÉNDEZ : 1955 AGE: 61Y ADMITTED: 08/31/2017 : 09/06/2017 CONSULTATION: Oncology consult, Dr. Fuchs. IMAGING: CT scan, chest x-ray. CT scan of the head showed no evidence of metastasis. HOSPITAL COURSE: The patient is an unfortunate 61-year-old female who had metastatic esophageal cancer. She came to the emergency room with generalized weakness, fatigue and she had a line was placed on Thursday. The patient had decreased appetite and she was stable to have her chemotherapy but she got weak and she came with dehydration, sepsis, tachycardia and the patient started on IV fluids. Condition deteriorating, did not improve and the patient was made DNR by the family. She was seen by Dr. Fuchs who described comfort care measures with the family and the family made her DNR comfort care and the patient this morning. CAUSE OF : 1. Metastatic esophageal carcinoma. 2. Sepsis. DICTATING PHYSICIAN: ALCIDES ROUSE M.D. [id number] Y#: [id number] ID: [id number] JOB#: [id number] ACCT: [id number] cc:ALCIDES ROUSE M.D. >
--- NOTE | 2017-09-07 08:05 | PROGRESS NOTE E ---
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 She had a septic picture and probably intra-abdominal force. She was on IV antibiotics. The patient is DNR, but is still not comfort care yet, followed by Dr. Fuchs. When I saw her, she is sleeping and not responding. OBJECTIVE: GENERAL: Patient lying in bed comfortable, not in distress. VITAL SIGNS: Temperature 97.6, heart rate 121, blood pressure 102/55. HEENT: Head normocephalic, atraumatic. Pupils round, reactive to light and accommodation bilaterally. Extraocular movements intact. Ears: Tympanic membranes intact bilaterally. No discharge from the ears. No discharge from the nose. NECK: Supple. No increased JVD. No thyromegaly. No lymphadenopathy. CARDIOVASCULAR: Normal S1, S2. Regular rate and rhythm. No murmur. No gallop. RESPIRATORY: Lungs clear. ABDOMEN: Soft, nontender. MUSCULOSKELETAL: No edema. NEUROLOGICAL: Awake, alert. LABORATORY: White blood count is 19, hemoglobin is 13.9, creatinine is 0.6. Sodium 133. ASSESSMENT: 1. SEVERE SEPSIS. 2. ELEVATED LIVER ENZYMES. 3. METASTATIC SQUAMOUS CELL CARCINOMA WITH COAGULOPATHY, DEHYDRATION, HYPONATREMIA, ALTERED MENTAL STATUS. PLAN: Continue IV fluids. Continue IV antibiotics. Pain control. The patient is still not ready to make a decision about comfort care. DISPOSITION: Likely home or with comfort care measures when the family makes a decision. DICTATING PHYSICIAN: ALCIDES ROUSE M.D. [id number] PHY#: [id number] ID: [id number] JOB#: [id number] ACCT: [id number] cc: > MTDD
== END 2017-09-06 09:15 | DRG 871 ==
LOC: ER 11:25 → EH 15:15 → UNDOADMIN 15:15 → EH 15:35 → 2N 18:02 → 4W 09-01 12:27
DX: A41.9 Sepsis, unspecified organism (principal); K72.00 Acute and subacute hepatic failure without coma; C15.5 Malignant neoplasm of lower third of esophagus; C15.4 Malignant neoplasm of middle third of esophagus; C78.7 Secondary malignant neoplasm of liver and intrahepatic bile duct; C78.89 Secondary malignant neoplasm of other digestive organs; E87.1 Hypo-osmolality and hyponatremia; D68.9 Coagulation defect, unspecified; E11.9 Type 2 diabetes mellitus without complications; I10 Essential (primary) hypertension; M19.90 Unspecified osteoarthritis, unspecified site; R65.20 Severe sepsis without septic shock; Z51.5 Encounter for palliative care; K72.90 Hepatic failure, unspecified without coma; R74.0 Nonspecific elevation of levels of transaminase and lactic acid dehydrogenase [LDH]; E78.00 Pure hypercholesterolemia, unspecified; Z66 Do not resuscitate; E86.0 Dehydration; I25.10 Atherosclerotic heart disease of native coronary artery without angina pectoris; Z90.49 Acquired absence of other specified parts of digestive tract; Z79.899 Other long term (current) drug therapy; Z79.84 Long term (current) use of oral hypoglycemic drugs; Z90.710 Acquired absence of both cervix and uterus; Z88.2 Allergy status to sulfonamides
CPT/HCPCS: 36415; 70450; 71010; 80053; 80202; 81001; 82803; 82962; 83605; 83690; 83735; 84100; 85025; 85610; 87040; 87086; 93005; 93010; 96360; 96361; 99291; J1170; J1642; J2543; J3370; J3430; J3490; J7030; J7060